=== PATIENT | female | born 1970 | race Caucasian/White ===

== ENCOUNTER 2017-09-10 10:52 | Emergency (ER) | payer OTHER ==
[2017-09-10] MEDS ORDERED: Sodium Chloride 0.9% 1,000 ML IV ONE (11:12)
[2017-09-10 11:44] LABS: CHLORIDE,CL 104 mmol/L (101-111); SODIUM,NA 138 mmol/L (135-145)
--- NOTE | 2017-09-10 11:45 | EDM.PDOC ---
ED HPI GENERAL MEDICAL PROBLEM - General Chief Complaint: Cardiovascular Problem Stated Complaint: DIZZY Time Seen by Provider: 09/10/17 11:30 Source of Information: Reports: Patient History Limitations: Reports: No Limitations - History of Present Illness INITIAL COMMENTS - FREE TEXT/NARRATIVE: This 47 yo female patient reports to the ED with increased dizziness. The patient reports her symptoms started on (09/07/17) and have been getting worse. The patient also reports a 1 month history of nasal congestion. The patient reports no tenderness to palpation of the sinuses. The patient reports no changes to her activity level, no changes to her diet, no changes to her level of fluid consumption and no recent traumatic events. The patient reports she has had a total hysterectomy. The patient has continued to take her sleeping medications with no changes to the dosing. Onset Date: 09/07/17 Duration: Constant, Getting Worse Location: Reports: Generalized Quality: Reports: Other (dizziness) Severity: Moderate Improves with: Reports: Rest Worsens with: Reports: Movement - Related Data Allergies Allergy/AdvReac Type Severity Reaction Status Date / Time levofloxacin Allergy Vomiting Verified 09/10/17 11:01 prochlorperazine Allergy Rash Verified 09/10/17 11:01 [From Compazine] comapazine Allergy Rash Uncoded 09/10/17 11:01 Home Meds: Home Meds Zolpidem [Ambien] 5 mg PO BEDTIME 05/05/14 [History] FLUoxetine [PROzac] 20 mg PO DAILY 10/20/16 [History] Past Medical History HEENT History: Reports: None, Impaired Vision Gastrointestinal History: Reports: Gastritis Other Gastrointestinal History: small intestine tumor Genitourinary History: Reports: None 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 - Infectious Disease History Infectious Disease History: Reports: Measles - Past Surgical History GI Surgical History: Reports: Cholecystectomy Female Surgical History: Reports: Section, Hysterectomy Social & Family History - Family History Family Medical History: Noncontributory - Tobacco Use Smoking Status *Q: Never Smoker Second Hand Smoke Exposure: Yes - Caffeine Use Caffeine Use: Reports: Coffee - Recreational Drug Use Recreational Drug Use: No - Living Situation & Occupation Living situation: Reports: with Family Occupation: Employed ED ROS GENERAL - Review of Systems Review Of Systems: ROS reveals no pertinent complaints other than HPI. ED EXAM, GENERAL - Physical Exam Exam: See Below Exam Limited By: No Limitations General Appearance: Alert, WD/WN, Mild Distress Eye Exam: Bilateral Eye: EOMI, Normal Inspection, PERRL Ears: Normal External Exam, Normal Canal, Hearing Grossly Normal, Normal TMs Nose: Normal Inspection, Normal Mucosa, No Blood Throat/Mouth: Normal Inspection, Normal Lips, Normal Teeth, Normal Gums, Normal Oropharynx, Normal Voice, No Airway Compromise Head: Atraumatic, Normocephalic Neck: Normal Inspection, Supple, Non-Tender, Full Range of Motion Respiratory/Chest: No Respiratory Distress, Lungs Clear, Normal Breath Sounds, No Accessory Muscle Use, Chest Non-Tender Cardiovascular: Normal Peripheral Pulses, Regular Rate, Rhythm, No Edema, No Gallop, No JVD, No Murmur, No Rub GI/Abdominal: Normal Bowel Sounds, Soft, Non-Tender, No Organomegaly, No Distention, No Abnormal Bruit, No Mass (Female) Exam: Deferred Rectal (Female) Exam: Deferred Back Exam: Normal Inspection, Full Range of Motion, NT Extremities: Normal Inspection, Normal Range of Motion, Non-Tender, Normal Capillary Refill, No Pedal Edema Neurological: Alert, Oriented, CN II-XII Intact, Normal Cognition, Normal Gait, Normal Reflexes, No Motor/Sensory Deficits Psychiatric: Normal Affect, Normal Mood Skin Exam: Warm, Dry, Intact, Normal Color, No Rash Lymphatic: No Adenopathy Course - Vital Signs Last Recorded V/S: Last Vital Signs Temp 36.0 C 09/10/17 10:57 Pulse 89 09/10/17 10:57 Resp 16 09/10/17 10:57 BP 130/82 09/10/17 10:57 Pulse Ox 96 09/10/17 10:57 Orthostatic Blood Pressure [ 104/68 Standing] Orthostatic Blood Pressure [ 121/78 Sitting] Orthostatic Blood Pressure [ 120/82 Supine] - Orders/Labs/Meds Orders: Active Orders 24 hr Category Date Time Status EKG Documentation Completion [RC] URGENT Care 09/10/17 11:12 Active Labs: Laboratory Tests 09/10/17 09/10/17 Range/Units 11:19 11:19 WBC 6.2 (5.0-10.0) 10^3/uL RBC 4.93 (4.2-5.4) 10^6/uL Hgb 14.1 D (12.0-16.0) g/dL Hct 44.1 (37.0-47.0) % MCV 89.5 (80-100) fL MCH 28.6 (27.0-34.0) pg MCHC 32.0 L (33.0-35.0) g/dL Plt Count 223 (150-450) 10^3/uL Neut % (Auto) 68.4 (42.2-75.2) % Lymph % (Auto) 21.1 (20.5-50.1) % [place] % (Auto) 6.8 (2-8) % Eos % (Auto) 3.2 H (1.0-3.0) % Baso % (Auto) 0.5 (0.0-1.0) % Sodium 138 (135-145) mmol/L Potassium 3.8 (3.6-5.0) mmol/L Chloride 104 (101-111) mmol/L Carbon Dioxide 22.0 (21.0-31.0) mmol/L Anion Gap 15.8 BUN 13 (7-18) mg/dL Creatinine 0.9 (0.6-1.3) mg/dL Est Cr Clr Drug Dosing 66.73 mL/min Estimated GFR (MDRD) > 60 BUN/Creatinine Ratio 14.44 Glucose 168 H (74-105) mg/dL Calcium 9.5 (8.4-10.2) mg/dl Total Bilirubin 0.3 (0.2-1.0) mg/dL AST 44 H (10-42) IU/L ALT 40 (10-60) IU/L Alkaline Phosphatase 113 (42-121) IU/L Troponin I < 0.02 (0.00-0.02) ng/ml Total Protein 7.1 (6.7-8.2) g/dl Albumin 4.1 (3.2-5.5) g/dl Globulin 3.0 Albumin/Globulin Ratio 1.37 Meds: Medications Discontinued Medications Generic Name Dose Route Start Last Admin Trade Name Freq PRN Reason Stop Dose Admin Sodium Chloride 1,000 mls @ 999 mls/hr 09/10/17 11:12 09/10/17 11:21 Normal Saline IV 09/10/17 12:12 999 mls/hr .BOLUS ONE Administration Meclizine HCl 25 mg 09/10/17 11:54 09/10/17 11:57 Antivert PO 09/10/17 11:55 25 mg ONETIME ONE Administration Departure - Departure Time of Disposition: 12:25 Disposition: Home, Self-Care 01 Condition: Fair Clinical Impression: Vertigo Instructions: Vertigo, [id number] Forms: ED Department Discharge Care Plan Goals: The patient was advised of the examination, lab and EKG results during the visit. The patient was given a liter of IV fluid and an oral dose of Meclizine while in the ED. The patient was discharged with a script for Meclizine (25 mg) #10 to take 1 by mouth 3 times per day as needed for dizziness. If the patient has any additional symptoms or concerns, the patient should follow-up with her primary care facility or return to the emergency department. - My Orders Last 24 Hours: My Active Orders 09/10/17 11:12 EKG Documentation Completion [RC] URGENT - Assessment/Plan Last 24 Hours: My Active Orders 09/10/17 11:12 EKG Documentation Completion [RC] URGENT
[2017-09-10] MEDS ORDERED: Meclizine 12.5 MG Tab PO ONE (11:54)
[2017-09-10 12:30] VITALS: BP 113/72
--- NOTE | 2017-09-13 10:21 | EKG ---
09/10/2017- CORTES RUCKER - EKG, per my reading, shows sinus rhythm at a rate of 77, with no acute ST changes. [facility] /[id number]
== END 2017-09-10 12:33 | disposition home or self-care (01) ==
LOC: DL.ED 10:52
DX: R42 Dizziness and giddiness (principal); Z88.1 Allergy status to other antibiotic agents; Z88.8 Allergy status to other drugs, medicaments and biological substances; Z79.899 Other long term (current) drug therapy
CPT/HCPCS: 36415; 80053; 84484; 85025; 93005; 96360; 99284; A9270; J7030

== ENCOUNTER 2017-10-08 19:37 | Emergency (ER) | payer OTHER ==
[2017-10-08] MEDS ORDERED: Sodium Chloride 0.9% 1,000 ML IV ONE ×2 (20:01→22:08)
--- NOTE | 2017-10-08 20:07 | EDM.PDOCBH ---
ED HPI GENERAL MEDICAL PROBLEM - General Chief Complaint: Behavioral/Psych Stated Complaint: took lot of pills fluoxetine Time Seen by Provider: 10/08/17 20:02 Source of Information: Reports: Patient, Family History Limitations: Reports: No Limitations - History of Present Illness INITIAL COMMENTS - FREE TEXT/NARRATIVE: pt states wants to kill herself and doesn't remember when she took all those pills. spouse states pt was fine this am but was sleeping/napping a lot, then he left to help cousin and returned @ 6pm and noticed pt was staggering about 7pm. then he brought her here. pt took approx. 13 x ambien 5mg + 26 x prozac 40mg + 37 meclizine 25mg at unknown time. - Related Data Allergies Allergy/AdvReac Type Severity Reaction Status Date / Time levofloxacin Allergy Vomiting Verified 10/08/17 19:46 prochlorperazine Allergy Rash Verified 10/08/17 19:46 [From Compazine] comapazine Allergy Rash Uncoded 10/08/17 19:46 Home Meds: Home Meds Zolpidem [Ambien] 5 mg PO BEDTIME 05/05/14 [History] FLUoxetine [PROzac] 20 mg PO DAILY 10/20/16 [History] Meclizine HCl [Dramamine Less Drowsy] 25 mg PO DAILY PRN 10/08/17 [History] Past Medical History HEENT History: Reports: None, Impaired Vision Gastrointestinal History: Reports: Gastritis Other Gastrointestinal History: small intestine tumor Genitourinary History: Reports: None 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 - Infectious Disease History Infectious Disease History: Reports: Measles - Past Surgical History GI Surgical History: Reports: Cholecystectomy Female Surgical History: Reports: Section, Hysterectomy Social & Family History - Family History Family Medical History: Noncontributory - Tobacco Use Smoking Status *Q: Never Smoker Second Hand Smoke Exposure: No - Caffeine Use Caffeine Use: Reports: Coffee - Recreational Drug Use Recreational Drug Use: No - Living Situation & Occupation Living situation: Reports: with Family Occupation: Employed ED ROS GENERAL - Review of Systems Review Of Systems: ROS reveals no pertinent complaints other than HPI. ED EXAM, BEHAVIORAL HEALTH - Physical Exam Exam: See Below Exam Limited By: No Limitations General Appearance: Alert, WD/WN, Mild Distress, Other (upset co-op, not wanting to talk) Eye Exam: Bilateral Eye: PERRL (pupils ER @ 4mm) Ears: Hearing Grossly Normal Throat/Mouth: Normal Voice, No Airway Compromise Head: Atraumatic Neck: Non-Tender, Full Range of Motion Respiratory/Chest: No Respiratory Distress Cardiovascular: Regular Rate, Rhythm GI/Abdominal: Soft, Non-Tender Neurological: Alert, Normal Cognition, Normal Gait, No Motor/Sensory Deficits, Oriented x 3 Psychiatric: Alert, Non-Communicative, Suicidal Thoughts Skin Exam: Warm, Dry, Normal color COURSE, BEHAVIORAL HEALTH COMP - Course Vital Signs: Last Vital Signs Temp 35.5 C 10/08/17 19:42 Pulse 77 10/08/17 20:31 Resp 16 10/08/17 20:31 BP 121/77 10/08/17 20:31 Pulse Ox 95 10/08/17 20:31 Orders, Labs, Meds: Active Orders 24 hr Category Date Time Status EKG 12 Lead [EKG Documentation Completion] [RC] STAT Care 10/08/17 20:01 Active EKG 12 Lead [EKG Documentation Completion] [RC] STAT Care 10/08/17 21:35 Active Sodium Chloride 0.9% [Normal Saline] 1,000 ml Med 10/08/17 22:08 Active IV .BOLUS Medication Orders Sodium Chloride (Normal Saline) 1,000 mls @ 999 mls/hr IV .BOLUS ONE Stop: 10/08/17 23:08 Last Admin: 10/08/17 22:13 Dose: 999 mls/hr Laboratory Tests 10/08/17 10/08/17 10/08/17 Range/Units 20:14 20:14 21:47 WBC 10.0 (5.0-10.0) 10^3/uL RBC 5.36 (4.2-5.4) 10^6/uL Hgb 15.3 (12.0-16.0) g/dL Hct 46.4 (37.0-47.0) % MCV 86.6 (80-100) fL MCH 28.5 (27.0-34.0) pg MCHC 33.0 (33.0-35.0) g/dL Plt Count 242 (150-450) 10^3/uL Neut % (Auto) 86.3 H (42.2-75.2) % Lymph % (Auto) 7.7 L (20.5-50.1) % [place] % (Auto) 5.2 (2-8) % Eos % (Auto) 0.4 L (1.0-3.0) % Baso % (Auto) 0.4 (0.0-1.0) % Sodium 139 (135-145) mmol/L Potassium 3.6 (3.6-5.0) mmol/L Chloride 104 (101-111) mmol/L Carbon Dioxide 23.0 (21.0-31.0) mmol/L Anion Gap 15.6 BUN 21 H (7-18) mg/dL Creatinine 1.1 (0.6-1.3) mg/dL Est Cr Clr Drug Dosing 54.60 mL/min Estimated GFR (MDRD) 53 BUN/Creatinine Ratio 19.09 Glucose 110 H (74-105) mg/dL Calcium 9.8 (8.4-10.2) mg/dl Total Bilirubin 0.4 (0.2-1.0) mg/dL AST 44 H (10-42) IU/L ALT 48 (10-60) IU/L Alkaline Phosphatase 121 (42-121) IU/L Troponin I < 0.02 (0.00-0.02) ng/ml Total Protein 8.2 (6.7-8.2) g/dl Albumin 4.7 (3.2-5.5) g/dl Globulin 3.5 Albumin/Globulin Ratio 1.34 Salicylates < 4 Urine Opiates Screen Negative (NEGATIVE) Ur Oxycodone Screen Negative (NEGATIVE) Urine Methadone Screen Negative (NEGATIVE) Acetaminophen < 10 Ur Barbiturates Screen Negative (NEGATIVE) U Tricyclic Antidepress Negative (NEGATIVE) Ur Phencyclidine Scrn Negative (NEGATIVE) Ur Amphetamine Screen Negative (NEGATIVE) U Methamphetamines Scrn Negative (NEGATIVE) Urine MDMA Screen Negative (NEGATIVE) U Benzodiazepines Scrn Positive H (NEGATIVE) Urine Cocaine Screen Negative (NEGATIVE) U Marijuana (THC) Screen Negative (NEGATIVE) Ethyl Alcohol < 5 mg/dL Medications Generic Name Dose Route Start Last Admin Trade Name Freq PRN Reason Stop Dose Admin Sodium Chloride 1,000 mls @ 999 mls/hr 10/08/17 22:08 10/08/17 22:13 Normal Saline IV 10/08/17 23:08 999 mls/hr .BOLUS ONE Administration Discontinued Medications Generic Name Dose Route Start Last Admin Trade Name Marielle PRN Reason Stop Dose Admin Sodium Chloride 1,000 mls @ 999 mls/hr 10/08/17 20:01 10/08/17 20:16 Normal Saline IV 10/08/17 21:01 999 mls/hr .BOLUS ONE Administration Re-Assessment/Re-Exam: case discussed with Nikki @ [facility] who recommended [facility]. repeat EKG show prolong QTc, case discussed with Dr Marx @ who kindly accepted pt. Departure - Departure Time of Disposition: 22:59 Disposition: DC/Tfer to Acute Hospital 02 Condition: Good Clinical Impression: Suicidal behavior with attempted self-injury - Discharge Information Forms: Interfacility Transfer EMTALA - My Orders Last 24 Hours: My Active Orders 10/08/17 20:01 EKG 12 Lead [EKG Documentation Completion] [RC] STAT 10/08/17 21:35 EKG 12 Lead [EKG Documentation Completion] [RC] STAT 10/08/17 22:08 Sodium Chloride 0.9% [Normal Saline] 1,000 ml IV .BOLUS - Assessment/Plan Last 24 Hours: My Active Orders 10/08/17 20:01 EKG 12 Lead [EKG Documentation Completion] [RC] STAT 10/08/17 21:35 EKG 12 Lead [EKG Documentation Completion] [RC] STAT 10/08/17 22:08 Sodium Chloride 0.9% [Normal Saline] 1,000 ml IV .BOLUS
[2017-10-08 20:31] VITALS: BP 121/77
[2017-10-08 20:46] LABS: CHLORIDE,CL 104 mmol/L (101-111); SODIUM,NA 139 mmol/L (135-145)
[2017-10-08 20:50] LABS: ACETAMINOPHEN < 10
--- NOTE | 2017-10-11 10:44 | EKG ---
10/08/2017 - CORTES RUCKER - FINDINGS: First EKG dated at 10/08/2017 at 1958 hours. I reviewed the EKG and agree with the machine's reading. Second EKG dated at 10/08/2017 at 2212 hours. I reviewed the EKG and agree with the machine's reading. [facility] /[id number]
== END 2017-10-08 23:25 ==
LOC: DL.ED 19:37
DX: T43.222A Poisoning by selective serotonin reuptake inhibitors, intentional self-harm, initial encounter (principal); T45.0X2A Poisoning by antiallergic and antiemetic drugs, intentional self-harm, initial encounter; Z88.1 Allergy status to other antibiotic agents; Z88.8 Allergy status to other drugs, medicaments and biological substances; Z79.899 Other long term (current) drug therapy
CPT/HCPCS: 36415; 80053; 80305; 84484; 85025; 93005; 96360; 96361; 99285; G0480; J7030

== ENCOUNTER 2017-12-09 17:41 | Emergency (ER) | payer OTHER ==
[2017-12-09] MEDS ORDERED: Acetaminophen/HYDROcodone 325-10 MG Tab PO ONE (17:42)
--- NOTE | 2017-12-09 18:04 | EDM.PDOC ---
ED HPI GENERAL MEDICAL PROBLEM - General Chief Complaint: General Stated Complaint: JOINT PAIN,REACTION TO PILL [id number] Time Seen by Provider: 12/09/17 17:57 Source of Information: Reports: Patient History Limitations: Reports: No Limitations - History of Present Illness INITIAL COMMENTS - FREE TEXT/NARRATIVE: Patient complains of all over body pain secondary to taking Crestor. She's had symptoms for about a week. No better with coenzyme Q. She describes joints feeling stiff however she does not have any edema or obvious swelling. She denies fever chills night sweats. No complaints of abdominal symptoms. No history of rheumatoid disease. Duration: Day(s): Generalized Pain Score (Numeric/FACES): 10 - Related Data Allergies Allergy/AdvReac Type Severity Reaction Status Date / Time levofloxacin Allergy Vomiting Verified 10/08/17 19:46 prochlorperazine Allergy Rash Verified 10/08/17 19:46 [From Compazine] comapazine Allergy Rash Uncoded 10/08/17 19:46 Home Meds: Home Meds ARIPiprazole [Abilify] 2 mg PO BEDTIME 12/09/17 [History] ClonazePAM [KlonoPIN] 0.5 mg PO BEDTIME 12/09/17 [History] Escitalopram [Lexapro] 20 mg PO BEDTIME 12/09/17 [History] Rosuvastatin [Crestor] 10 mg PO BEDTIME 12/09/17 [History] Ubidecarenone [Co Q-10] 100 mg PO BEDTIME 12/09/17 [History] Past Medical History HEENT History: Reports: None, Impaired Vision Cardiovascular History: Reports: High Cholesterol Gastrointestinal History: Reports: Gastritis Other Gastrointestinal History: small intestine tumor Genitourinary History: Reports: None 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 - Infectious Disease History Infectious Disease History: Reports: Measles - Past Surgical History GI Surgical History: Reports: Cholecystectomy Female Surgical History: Reports: Section, Hysterectomy Social & Family History - Family History Family Medical History: Noncontributory - Tobacco Use Smoking Status *Q: Never Smoker Second Hand Smoke Exposure: No - Caffeine Use Caffeine Use: Reports: Coffee - Recreational Drug Use Recreational Drug Use: No - Living Situation & Occupation Living situation: Reports: with Family Occupation: Employed ED ROS GENERAL - Review of Systems Review Of Systems: See Below Constitutional: Reports: Malaise HEENT: Reports: No Symptoms Respiratory: Reports: No Symptoms Cardiovascular: Reports: No Symptoms Endocrine: Reports: No Symptoms GI/Abdominal: Reports: No Symptoms : Reports: No Symptoms Musculoskeletal: Reports: Joint Pain, Muscle Pain Skin: Reports: No Symptoms Neurological: Reports: No Symptoms Psychiatric: Reports: No Symptoms ED EXAM, GENERAL - Physical Exam Exam: See Below Exam Limited By: No Limitations General Appearance: Alert, No Apparent Distress Head: Atraumatic, Normocephalic Neck: Normal Inspection Respiratory/Chest: Lungs Clear Cardiovascular: Normal Peripheral Pulses Extremities: Normal Range of Motion, No Pedal Edema, Normal Capillary Refill. No: Pallor, Redness Neurological: Alert, Oriented, CN II-XII Intact Course - Vital Signs Last Recorded V/S: Last Vital Signs Temp 97 F 12/09/17 18:12 Pulse 81 12/09/17 18:12 Resp 16 12/09/17 18:12 BP 118/69 12/09/17 18:12 Pulse Ox 99 12/09/17 18:12 - Orders/Labs/Meds Orders: Active Orders 24 hr Category Date Time Status CBC WITH AUTO DIFF [HEME] Stat Lab 12/09/17 18:12 Results SEDIMENTATION RATE MANUAL [HEME] Stat Lab 12/09/17 18:12 Results Ketorolac [Toradol] Med 12/09/17 18:47 Once 30 mg IM ONETIME ONE Labs: Laboratory Tests 12/09/17 12/09/17 Range/Units 18:12 18:12 WBC 6.5 (5.0-10.0) 10^3/uL RBC 4.33 (4.2-5.4) 10^6/uL Hgb 12.4 D (12.0-16.0) g/dL Hct 38.7 (37.0-47.0) % MCV 89.4 (80-100) fL MCH 28.6 (27.0-34.0) pg MCHC 32.0 L (33.0-35.0) g/dL Plt Count 205 (150-450) 10^3/uL Neut % (Auto) 58.7 (42.2-75.2) % Lymph % (Auto) 28.9 (20.5-50.1) % [place] % (Auto) 8.9 H (2-8) % Eos % (Auto) 2.9 (1.0-3.0) % Baso % (Auto) 0.6 (0.0-1.0) % Creatine Kinase 153 (26-174) IU/L - Re-Assessments/Exams Free Text/Narrative Re-Assessment/Exam: Labs are reviewed. Patient tolerated Toradol. Patient advised to discontinue taking Crestor Departure - Departure Time of Disposition: 18:51 Disposition: Home, Self-Care 01 Condition: Good Clinical Impression: Adverse reaction to statin medication - Discharge Information Forms: ED Department Discharge Additional Instructions: Discontinue taking Crestor at this time. Follow-up with her regular provider on Monday. Call or return if any problems questions or concerns - My Orders Last 24 Hours: My Active Orders 12/09/17 18:12 CBC WITH AUTO DIFF [HEME] Stat SEDIMENTATION RATE MANUAL [HEME] Stat 12/09/17 18:47 Ketorolac [Toradol] 30 mg IM ONETIME ONE - Assessment/Plan Last 24 Hours: My Active Orders 12/09/17 18:12 CBC WITH AUTO DIFF [HEME] Stat SEDIMENTATION RATE MANUAL [HEME] Stat 12/09/17 18:47 Ketorolac [Toradol] 30 mg IM ONETIME ONE
[2017-12-09 18:15] VITALS: BP 118/69
[2017-12-09] MEDS ORDERED: Ketorolac 30 MG/ML SDV IM ONE (18:47)
[2017-12-09 19:28] LABS: CHLORIDE,CL 105 mmol/L (101-111); SODIUM,NA 139 mmol/L (135-145)
[2017-12-09] MEDS ORDERED: Acetaminophen/HYDROcodone 325-10 MG Tab ONE (20:21)
== END 2017-12-09 20:30 | disposition home or self-care (01) ==
LOC: DL.ED 17:41
DX: M25.50 Pain in unspecified joint (principal); T46.6X5A Adverse effect of antihyperlipidemic and antiarteriosclerotic drugs, initial encounter; E78.00 Pure hypercholesterolemia, unspecified; F32.9 Major depressive disorder, single episode, unspecified; Z88.1 Allergy status to other antibiotic agents; Z88.8 Allergy status to other drugs, medicaments and biological substances
CPT/HCPCS: 36415; 80053; 82550; 85025; 85651; 86140; 96372; 99283; J1885; A9270-GY

== ENCOUNTER 2018-02-10 18:02 | Emergency (ER) | payer OTHER ==
[2018-02-10] MEDS ORDERED: Ketorolac 30 MG/ML SDV IM ONE (19:21)
--- NOTE | 2018-02-10 19:26 | EDM.PDOC ---
ED HPI GENERAL MEDICAL PROBLEM - General Chief Complaint: Lower Extremity Injury/Pain Stated Complaint: [id number] reaction to Cholesterol pills Time Seen by Provider: 02/10/18 19:24 Source of Information: Reports: Patient History Limitations: Reports: No Limitations - History of Present Illness INITIAL COMMENTS - FREE TEXT/NARRATIVE: c/o few months h/o aching pain in both legs since starting on crestor. saw PMD but was told to continue Rx but now feeling worse and hard to walk about. Bilateral Knee Pain Score (Numeric/FACES): 9 - Related Data Allergies Allergy/AdvReac Type Severity Reaction Status Date / Time levofloxacin Allergy Vomiting Verified 02/10/18 18:34 prochlorperazine Allergy Rash Verified 02/10/18 18:34 [From Compazine] comapazine Allergy Rash Uncoded 02/10/18 18:34 Home Meds: Home Meds ARIPiprazole [Abilify] 2 mg PO BEDTIME 12/09/17 [History] ClonazePAM [KlonoPIN] 0.5 mg PO BID 12/09/17 [History] Escitalopram [Lexapro] 20 mg PO BEDTIME 12/09/17 [History] Rosuvastatin [Crestor] 5 mg PO BEDTIME 12/09/17 [History] Ubidecarenone [Co Q-10] 100 mg PO BEDTIME 12/09/17 [History] Past Medical History HEENT History: Reports: None, Impaired Vision Cardiovascular History: Reports: High Cholesterol Gastrointestinal History: Reports: Gastritis Other Gastrointestinal History: small intestine tumor Genitourinary History: Reports: None 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 - Infectious Disease History Infectious Disease History: Reports: Measles - Past Surgical History GI Surgical History: Reports: Cholecystectomy, Small Bowel Female Surgical History: Reports: Section, Hysterectomy Social & Family History - Family History Family Medical History: Noncontributory - Tobacco Use Smoking Status *Q: Never Smoker Second Hand Smoke Exposure: No - Caffeine Use Caffeine Use: Reports: Coffee, Tea - Recreational Drug Use Recreational Drug Use: No - Living Situation & Occupation Living situation: Reports: with Family Occupation: Employed Review of Systems - Review of Systems Review Of Systems: ROS reveals no pertinent complaints other than HPI. ED EXAM, GENERAL - Physical Exam Exam: See Below Exam Limited By: No Limitations General Appearance: Alert, WD/WN, Anxious, Mild Distress, Other (upset) Ears: Hearing Grossly Normal Throat/Mouth: Normal Voice, No Airway Compromise Head: Atraumatic Neck: Non-Tender, Full Range of Motion Respiratory/Chest: No Respiratory Distress Cardiovascular: Regular Rate, Rhythm GI/Abdominal: Soft, Non-Tender Extremities: Leg Pain, Other (NV wnl, minimal tenderness on R/P. gait limited to pain.). No: Limited Range of Motion, Increased Warmth, Mottled, Pallor, Redness Neurological: Alert, Oriented, Normal Cognition, No Motor/Sensory Deficits Psychiatric: Anxious Skin Exam: Warm, Dry, Normal Color Lymphatic: No Adenopathy Course - Vital Signs Last Recorded V/S: Last Vital Signs Temp 36.4 C 02/10/18 18:19 Pulse 75 02/10/18 18:19 Resp 20 02/10/18 18:19 BP 114/71 02/10/18 18:19 Pulse Ox 98 02/10/18 18:19 - Orders/Labs/Meds Labs: Laboratory Tests 02/10/18 02/10/18 02/10/18 Range/Units 19:05 19:05 19:05 WBC 8.1 (5.0-10.0) 10^3/uL RBC 4.55 (4.2-5.4) 10^6/uL Hgb 13.0 (12.0-16.0) g/dL Hct 39.7 (37.0-47.0) % MCV 87.3 (80-100) fL MCH 28.6 (27.0-34.0) pg MCHC 32.7 L (33.0-35.0) g/dL Plt Count 239 (150-450) 10^3/uL Neut % (Auto) 57.9 (42.2-75.2) % Lymph % (Auto) 31.1 (20.5-50.1) % [place] % (Auto) 8.3 H (2-8) % Eos % (Auto) 2.2 (1.0-3.0) % Baso % (Auto) 0.5 (0.0-1.0) % D-Dimer, Quantitative 1870 H (0-400) ng/mL Sodium 138 (135-145) mmol/L Potassium 3.5 L (3.6-5.0) mmol/L Chloride 101 (101-111) mmol/L Carbon Dioxide 30.0 (21.0-31.0) mmol/L Anion Gap 10.5 BUN 13 (7-18) mg/dL Creatinine 0.8 (0.6-1.3) mg/dL Est Cr Clr Drug Dosing 75.07 mL/min Estimated GFR (MDRD) > 60 BUN/Creatinine Ratio 16.25 Glucose 107 H (74-105) mg/dL Calcium 9.3 (8.4-10.2) mg/dl Total Bilirubin 0.6 (0.2-1.0) mg/dL AST 29 (10-42) IU/L ALT 30 (10-60) IU/L Alkaline Phosphatase 124 H (42-121) IU/L Creatine Kinase 127 (26-174) IU/L Total Protein 7.1 (6.7-8.2) g/dl Albumin 4.1 (3.2-5.5) g/dl Globulin 3.0 Albumin/Globulin Ratio 1.37 Meds: Medications Discontinued Medications Generic Name Dose Route Start Last Admin Trade Name Freq PRN Reason Stop Dose Admin Ketorolac Tromethamine 30 mg 02/10/18 19:21 02/10/18 19:29 Toradol IM 02/10/18 19:22 30 mg ONETIME ONE Administration - Re-Assessments/Exams Free Text/Narrative Re-Assessment/Exam: 02/10/18 20:24 results discussed with pt who is feeling much better and wants to go home now. elevated d dimer discussed but pt denies CP/SOB and actuaaly feels very good right now and smiling. continue use of crestor was discussed and decision left to pt presently. Departure - Departure Time of Disposition: 20:26 Disposition: Home, Self-Care 01 Condition: Good Clinical Impression: Adverse reaction to statin medication, Muscle spasm of both lower legs - Discharge Information Instructions: Muscle Cramps and Spasms, [id number] Forms: ED Department Discharge Additional Instructions: 1) rest 2) try heat to sore areas 3) return if there is any change or concern
[2018-02-10 19:30] LABS: ANION GAP 10.5; CHLORIDE,CL 101 mmol/L (101-111); SODIUM,NA 138 mmol/L (135-145)
[2018-02-10 20:26] VITALS: BP 100/70
== END 2018-02-10 20:30 | disposition home or self-care (01) ==
LOC: DL.ED 18:02
DX: M62.838 Other muscle spasm (principal); T46.6X5A Adverse effect of antihyperlipidemic and antiarteriosclerotic drugs, initial encounter; E78.00 Pure hypercholesterolemia, unspecified; Z88.1 Allergy status to other antibiotic agents; Z88.8 Allergy status to other drugs, medicaments and biological substances; Z79.899 Other long term (current) drug therapy; Z90.49 Acquired absence of other specified parts of digestive tract
CPT/HCPCS: 36415; 80053; 82550; 85025; 85379; 96372; 99283; J1885

== ENCOUNTER 2018-06-17 14:40 | Emergency (ER) | payer OTHER ==
[2018-06-17 15:23] VITALS: BP 107/74
[2018-06-17] MEDS ORDERED: LORazepam 0.5 MG Tab PO ONE (16:04)
[2018-06-17] MEDS ORDERED: LORazepam 0.5 MG Tab ONE (16:59)
--- NOTE | 2018-06-17 17:01 | EDM.PDOCBH ---
Scribed by Cassandra Camarillo 06/17/18 1700 for Ashutosh Rivera PA ED HPI GENERAL MEDICAL PROBLEM - General Chief Complaint: Behavioral/Psych Stated Complaint: PANIC/ANXIETY ATTACH Time Seen by Provider: 06/17/18 16:00 Source of Information: Reports: Patient, RN, RN Notes Reviewed History Limitations: Reports: No Limitations - History of Present Illness INITIAL COMMENTS - FREE TEXT/NARRATIVE: Patient is a 47-year-old female who is having an anxiety attack. She is having the anxiety attack because 2 weeks ago her dog got attacked, daughter moved out 1-1/2 weeks ago and work problems. She has taken all of her medications today. Onset: Gradual Duration: Getting Worse Severity: Moderate Improves with: Reports: None Worsens with: Reports: None Associated Symptoms: Reports: No Other Symptoms - Related Data Allergies Allergy/AdvReac Type Severity Reaction Status Date / Time levofloxacin Allergy Vomiting Verified 02/10/18 18:34 prochlorperazine Allergy Rash Verified 02/10/18 18:34 [From Compazine] comapazine Allergy Rash Uncoded 02/10/18 18:34 Home Meds: Home Meds ARIPiprazole [Abilify] 2 mg PO BEDTIME 12/09/17 [History] ClonazePAM [KlonoPIN] 0.5 mg PO BID 12/09/17 [History] Escitalopram [Lexapro] 20 mg PO BEDTIME 12/09/17 [History] Rosuvastatin [Crestor] 5 mg PO BEDTIME 12/09/17 [History] Ubidecarenone [Co Q-10] 100 mg PO BEDTIME 12/09/17 [History] Zolpidem Tartrate [Ambien] 10 mg PO BEDTIME 05/25/18 [History] hydroCHLOROthiazide [Hydrochlorothiazide] 12.5 mg PO DAILY 06/17/18 [History] Past Medical History HEENT History: Reports: None, Impaired Vision Cardiovascular History: Reports: High Cholesterol Gastrointestinal History: Reports: Gastritis Other Gastrointestinal History: small intestine tumor Genitourinary History: Reports: None 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 - Infectious Disease History Infectious Disease History: Reports: Measles - Past Surgical History GI Surgical History: Reports: Cholecystectomy, Small Bowel Female Surgical History: Reports: Section, Hysterectomy Social & Family History - Family History Family Medical History: Noncontributory - Caffeine Use Caffeine Use: Reports: Soda - Living Situation & Occupation Living situation: Reports: with Family Occupation: Employed ED ROS GENERAL - Review of Systems Review Of Systems: ROS reveals no pertinent complaints other than HPI. ED EXAM, BEHAVIORAL HEALTH - Physical Exam Exam: See Below Exam Limited By: No Limitations General Appearance: Alert, WD/WN, No Apparent Distress Eye Exam: Bilateral Eye: EOMI, Normal Inspection, PERRL Ears: Normal External Exam, Normal Canal, Hearing Grossly Normal, Normal TMs Nose: Normal Inspection, Normal Mucosa, No Blood Throat/Mouth: Normal Inspection, Normal Lips, Normal Teeth, Normal Gums, Normal Oropharynx, Normal Voice, No Airway Compromise Head: Atraumatic, Normocephalic Neck: Normal Inspection, Supple, Non-Tender, Full Range of Motion Respiratory/Chest: No Respiratory Distress, Lungs Clear, Normal Breath Sounds, No Accessory Muscle Use, Chest Non-Tender Cardiovascular: Normal Peripheral Pulses, Regular Rate, Rhythm, No Edema, No Gallop, No JVD, No Murmur, No Rub GI/Abdominal: Normal Bowel Sounds, Soft, Non-Tender, No Organomegaly, No Distention, No Abnormal Bruit, No Mass Rectal (Female) Exam: Deferred Back Exam: Normal Inspection, Full Range of Motion, NT Extremities: Normal Inspection, Normal Range of Motion, Non-Tender, Normal Capillary Refill, No Pedal Edema Neurological: Alert, Normal Mood/Affect, CN II-XII Intact, Normal Cognition, Normal Gait, Normal Reflexes, No Motor/Sensory Deficits, Oriented x 3 Psychiatric: Alert, Normal Affect, Normal Cognition, Normal Mood, Oriented Skin Exam: Warm, Dry, Intact COURSE, BEHAVIORAL HEALTH COMP - Course Vital Signs: Last Vital Signs Temp 36.1 C 06/17/18 15:21 Pulse 78 06/17/18 15:21 Resp 16 06/17/18 15:21 BP 107/74 06/17/18 15:21 Pulse Ox 98 06/17/18 15:21 Orders, Labs, Meds: Medications Discontinued Medications Generic Name Dose Route Start Last Admin Trade Name Marielle PRN Reason Stop Dose Admin Lorazepam 0.5 mg 06/17/18 16:04 06/17/18 16:08 Ativan PO 06/17/18 16:05 0.5 mg ONETIME ONE Administration Departure - Departure Time of Disposition: 16:53 Disposition: Home, Self-Care 01 Condition: Fair Clinical Impression: Panic attack - Discharge Information *PRESCRIPTION DRUG MONITORING PROGRAM REVIEWED*: Not Applicable *COPY OF PRESCRIPTION DRUG MONITORING REPORT IN PATIENT CLARK: Not Applicable Instructions: Panic Attack, [id number] Forms: ED Department Discharge Care Plan Goals: The patient was advised of the examination results during the visit. The patient was given an oral dose of Ativan while in the ED. The patient was discharged with Ativan (0.5 mg) #2 to take 1 by mouth every 8 hours as needed and a script for Ativan (0.5 mg) #6 to take 1 by mouth every 8 hours as needed for acute anxiety. The patient was encouraged to follow-up with her primary care and her counselor for continued evaluation and further treatment. If the patient has any additional symptoms or concerns, the patient should visit her primary care facility or return to the emergency department. I have read and agree with the documentation that has been completed regarding this visit. By signing this record, I attest that the documentation was completed in my physical presence and is an accurate record of the encounter.
== END 2018-06-17 17:07 | disposition home or self-care (01) ==
LOC: DL.ED 14:40
DX: F41.0 Panic disorder [episodic paroxysmal anxiety] (principal); Z79.899 Other long term (current) drug therapy
CPT/HCPCS: 99283; A9270

== ENCOUNTER 2018-11-14 18:41 | Emergency (ER) | payer OTHER ==
[2018-11-14 18:59] VITALS: BP 102/69
[2018-11-14] MEDS ORDERED: Sodium Chloride 0.9% 10 ML Syringe FLUSH PRN (19:04)
--- NOTE | 2018-11-14 19:15 | EDM.PDOC ---
ED HPI GENERAL MEDICAL PROBLEM - General Chief Complaint: General Stated Complaint: NOT FEELING GOOD Time Seen by Provider: 11/14/18 19:14 Source of Information: Reports: Patient, RN, RN Notes Reviewed History Limitations: Reports: No Limitations - History of Present Illness INITIAL COMMENTS - FREE TEXT/NARRATIVE: Pt to ER with c/o urgency, frequently burning with urination for about 2 weeks. She states she had the flu about 2 weeks ago, and has not felt much better since then. States she has a bad taste in her mouth "like cardboard". She states dizziness and feels as though she's going to pass out. States wt loss. Bad taste in mouth began about 1 week ago. Admits to chills, nausea, sore throat. Denies fever, CP, SOB, diarrhea, or blood in urine. Onset: Gradual - Related Data Allergies Allergy/AdvReac Type Severity Reaction Status Date / Time levofloxacin Allergy Vomiting Verified 11/14/18 18:59 prochlorperazine Allergy Rash Verified 11/14/18 18:59 [From Compazine] comapazine Allergy Rash Uncoded 11/14/18 18:59 Home Meds: Home Meds ARIPiprazole [Abilify] 2 mg PO BEDTIME 12/09/17 [History] ClonazePAM [KlonoPIN] 0.5 mg PO BID 12/09/17 [History] Escitalopram [Lexapro] 20 mg PO BEDTIME 12/09/17 [History] Rosuvastatin [Crestor] 5 mg PO BEDTIME 12/09/17 [History] Ubidecarenone [Co Q-10] 100 mg PO BEDTIME 12/09/17 [History] Zolpidem Tartrate [Ambien] 10 mg PO BEDTIME 05/25/18 [History] hydroCHLOROthiazide [Hydrochlorothiazide] 12.5 mg PO DAILY 06/17/18 [History] Past Medical History HEENT History: Reports: None, Impaired Vision Cardiovascular History: Reports: High Cholesterol Gastrointestinal History: Reports: Gastritis Other Gastrointestinal History: small intestine tumor Genitourinary History: Reports: 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 - Infectious Disease History Infectious Disease History: Reports: Measles - Past Surgical History GI Surgical History: Reports: Cholecystectomy, Small Bowel Female Surgical History: Reports: Section, Hysterectomy Social & Family History - Family History Family Medical History: Noncontributory - Tobacco Use Smoking Status *Q: Never Smoker Second Hand Smoke Exposure: No - Caffeine Use Caffeine Use: Reports: None - Recreational Drug Use Recreational Drug Use: No - Living Situation & Occupation Living situation: Reports: with Family Occupation: Employed ED ROS GENERAL - Review of Systems Review Of Systems: ROS reveals no pertinent complaints other than HPI. ED EXAM, GENERAL - Physical Exam Exam: See Below Exam Limited By: No Limitations General Appearance: Alert, WD/WN, No Apparent Distress Eye Exam: Bilateral Eye: EOMI, Normal Inspection Ears: Normal External Exam, Normal Canal, Hearing Grossly Normal, Normal TMs Nose: Normal Inspection Throat/Mouth: Normal Inspection, Normal Voice, No Airway Compromise Head: Atraumatic, Normocephalic Neck: Normal Inspection, Supple, Non-Tender, Full Range of Motion Respiratory/Chest: No Respiratory Distress, Lungs Clear, Normal Breath Sounds, No Accessory Muscle Use, Chest Non-Tender Cardiovascular: Normal Peripheral Pulses, Regular Rate, Rhythm, No Edema, No Gallop, No JVD, No Murmur, No Rub Peripheral Pulses: 2+: Radial (L), Radial (R) GI/Abdominal: Normal Bowel Sounds, Soft, Non-Tender, No Organomegaly, No Distention, No Abnormal Bruit, No Mass, Pelvis Stable (Female) Exam: Deferred Rectal (Female) Exam: Deferred Back Exam: Normal Inspection, Full Range of Motion, NT Extremities: Normal Inspection, Normal Range of Motion, Non-Tender, Normal Capillary Refill, No Pedal Edema Neurological: Alert, Oriented, CN II-XII Intact, Normal Cognition, Normal Gait, Normal Reflexes, No Motor/Sensory Deficits Psychiatric: Normal Mood, Flat Affect Skin Exam: Warm, Dry, Intact, Normal Color, No Rash Lymphatic: No Adenopathy Course - Vital Signs Last Recorded V/S: Last Vital Signs Temp 97.3 F 11/14/18 18:56 Pulse 107 H 11/14/18 18:56 Resp 18 11/14/18 18:56 BP 102/69 11/14/18 18:56 Pulse Ox 94 L 11/14/18 18:56 - Orders/Labs/Meds Orders: Active Orders 24 hr Category Date Time Status Peripheral IV Care [RC] . DIRECTED Care 11/14/18 19:04 Active CULTURE STREP A CONFIRMATION [] Stat Lab 11/14/18 20:04 Results CULTURE URINE [] Stat Lab 11/14/18 20:18 Received STREP SCRN A RAPID W CULT CONF [] Stat Lab 11/14/18 20:04 Results Peripheral IV Insertion Adult [OM.PC] Routine Oth 11/14/18 19:04 Ordered Labs: Laboratory Tests 11/14/18 11/14/18 11/14/18 Range/Units 19:12 19:12 19:12 WBC 7.4 (5.0-10.0) 10^3/uL RBC 4.62 (4.2-5.4) 10^6/uL Hgb 13.6 D (12.0-16.0) g/dL Hct 40.4 (37.0-47.0) % MCV 87.4 (80-100) fL MCH 29.4 (27.0-34.0) pg MCHC 33.7 (33.0-35.0) g/dL Plt Count 205 (150-450) 10^3/uL Neut % (Auto) 59.8 (42.2-75.2) % Lymph % (Auto) 28.0 (20.5-50.1) % [place] % (Auto) 8.4 H (2-8) % Eos % (Auto) 2.7 (1.0-3.0) % Baso % (Auto) 1.1 H (0.0-1.0) % Sodium 136 (135-145) mmol/L Potassium 4.0 (3.6-5.0) mmol/L Chloride 101 (101-111) mmol/L Carbon Dioxide 25.0 (21.0-31.0) mmol/L Anion Gap 14.0 BUN 11 (7-18) mg/dL Creatinine 0.6 (0.6-1.3) mg/dL Est Cr Clr Drug Dosing 99.02 mL/min Estimated GFR (MDRD) > 60 BUN/Creatinine Ratio 18.33 Glucose 104 (74-105) mg/dL Calcium 9.3 (8.4-10.2) mg/dl Total Bilirubin 0.5 (0.2-1.0) mg/dL AST 25 (10-42) IU/L ALT 23 (10-60) IU/L Alkaline Phosphatase 99 (42-121) IU/L Total Protein 7.2 (6.7-8.2) g/dl Albumin 3.9 (3.2-5.5) g/dl Globulin 3.3 Albumin/Globulin Ratio 1.18 Amylase 122 H (28-100) U/L Lipase 47 (22-51) U/L Urine Color (YELLOW) Urine Appearance (CLEAR) Urine pH (5.0-9.0) Ur Specific [place] (1.005-1.030) Urine Protein (NEGATIVE) Urine Glucose (UA) (NEGATIVE) Urine Ketones (NEGATIVE) Urine Occult Blood (NEGATIVE) Urine Nitrite (NEGATIVE) Urine Bilirubin (NEGATIVE) Urine Urobilinogen (0.2-1.0) mg/dL Ur Leukocyte Esterase (NEGATIVE) Urine RBC /HPF Urine WBC (0-5/HPF) /HPF Ur Epithelial Cells /HPF Urine Bacteria (0-FEW/HPF) /HPF Urine Mucus /LPF 11/14/18 Range/Units 20:18 WBC (5.0-10.0) 10^3/uL RBC (4.2-5.4) 10^6/uL Hgb (12.0-16.0) g/dL Hct (37.0-47.0) % MCV (80-100) fL MCH (27.0-34.0) pg MCHC (33.0-35.0) g/dL Plt Count (150-450) 10^3/uL Neut % (Auto) (42.2-75.2) % Lymph % (Auto) (20.5-50.1) % [place] % (Auto) (2-8) % Eos % (Auto) (1.0-3.0) % Baso % (Auto) (0.0-1.0) % Sodium (135-145) mmol/L Potassium (3.6-5.0) mmol/L Chloride (101-111) mmol/L Carbon Dioxide (21.0-31.0) mmol/L Anion Gap BUN (7-18) mg/dL Creatinine (0.6-1.3) mg/dL Est Cr Clr Drug Dosing mL/min Estimated GFR (MDRD) BUN/Creatinine Ratio Glucose (74-105) mg/dL Calcium (8.4-10.2) mg/dl Total Bilirubin (0.2-1.0) mg/dL AST (10-42) IU/L ALT (10-60) IU/L Alkaline Phosphatase (42-121) IU/L Total Protein (6.7-8.2) g/dl Albumin (3.2-5.5) g/dl Globulin Albumin/Globulin Ratio Amylase (28-100) U/L Lipase (22-51) U/L Urine Color Yellow (YELLOW) Urine Appearance Cloudy (CLEAR) Urine pH 7.0 (5.0-9.0) Ur Specific [place] 1.020 (1.005-1.030) Urine Protein Negative (NEGATIVE) Urine Glucose (UA) Negative (NEGATIVE) Urine Ketones Negative (NEGATIVE) Urine Occult Blood Negative (NEGATIVE) Urine Nitrite Negative (NEGATIVE) Urine Bilirubin Negative (NEGATIVE) Urine Urobilinogen 0.2 (0.2-1.0) mg/dL Ur Leukocyte Esterase Moderate H (NEGATIVE) Urine RBC 0-5 /HPF Urine WBC 50-75 H (0-5/HPF) /HPF Ur Epithelial Cells Moderate H /HPF Urine Bacteria Many H (0-FEW/HPF) /HPF Urine Mucus Moderate H /LPF Meds: Medications Discontinued Medications Generic Name Dose Route Start Last Admin Trade Name Freq PRN Reason Stop Dose Admin Lactated Ringer's 1,000 mls @ 999 mls/hr 11/14/18 19:28 11/14/18 19:38 Ringers, Lactated IV 11/14/18 20:28 999 mls/hr .BOLUS ONE Administration Nitrofurantoin Macrocrystals 100 mg 11/14/18 20:42 11/14/18 20:49 Macrobid PO 11/14/18 20:43 100 mg ONETIME ONE Administration Sodium Chloride 10 ml 11/14/18 19:04 11/14/18 19:14 Saline Flush FLUSH 10 ml ASDIRECTED PRN Administration Keep Vein Open Departure - Departure Time of Disposition: 20:58 Disposition: Home, Self-Care 01 Condition: Fair Clinical Impression: Vaginal yeast infection UTI (urinary tract infection) Qualifiers: Urinary tract infection type: acute cystitis Hematuria presence: without hematuria Qualified Code(s): N30.00 - Acute cystitis without hematuria GERD (gastroesophageal reflux disease) Qualifiers: Esophagitis presence: esophagitis presence not specified Qualified Code(s): K21.9 - Gastro-esophageal reflux disease without esophagitis - Discharge Information *PRESCRIPTION DRUG MONITORING PROGRAM REVIEWED*: No *COPY OF PRESCRIPTION DRUG MONITORING REPORT IN PATIENT CLARK: No Instructions: Indigestion, Qyay-[id number], Food Choices for Gastroesophageal Reflux Disease, Adult, [id number], Antibiotic Medicine, Adult, [id number], Heartburn, [id number], Vaginal Yeast Infection, Adult, Urinary Tract Infection , Adult, [id number], Gastroesophageal Reflux Disease, Adult, [id number] Referrals: Angela Edmonds NP [Primary Care Provider] - Forms: ED Department Discharge Additional Instructions: RX: Omeprazole, Diflucan, Macrobid Drink plenty of water Follow up with your primary care facility if no improvement - My Orders Last 24 Hours: My Active Orders 11/14/18 19:04 Peripheral IV Care [RC] . DIRECTED Peripheral IV Insertion Adult [OM.PC] Routine 11/14/18 20:04 CULTURE STREP A CONFIRMATION [RM] Stat STREP SCRN A RAPID W CULT CONF [RM] Stat 11/14/18 20:18 CULTURE URINE [RM] Stat - Assessment/Plan Last 24 Hours: My Active Orders 11/14/18 19:04 Peripheral IV Care [RC] . DIRECTED Peripheral IV Insertion Adult [OM.PC] Routine 11/14/18 20:04 CULTURE STREP A CONFIRMATION [RM] Stat STREP SCRN A RAPID W CULT CONF [RM] Stat 11/14/18 20:18 CULTURE URINE [RM] Stat
[2018-11-14] MEDS ORDERED: Lactated Ringers 1,000 ML IV ONE (19:28)
[2018-11-14 19:37] LABS: CHLORIDE,CL 101 mmol/L (101-111); SODIUM,NA 136 mmol/L (135-145)
[2018-11-14] MEDS ORDERED: Nitrofurantoin Monohydrate/Macrocrystalline 100 MG Cap PO ONE (20:42)
== END 2018-11-14 21:12 | disposition home or self-care (01) ==
LOC: DL.ED 18:41
DX: N30.00 Acute cystitis without hematuria (principal); K21.9 Gastro-esophageal reflux disease without esophagitis; B37.3 Candidiasis of vulva and vagina; Z88.8 Allergy status to other drugs, medicaments and biological substances; Z88.1 Allergy status to other antibiotic agents
CPT/HCPCS: 36415; 80053; 81001; 82150; 83690; 85025; 87081; 87086; 87430; 96360; 99284; A9270; J7120

== ENCOUNTER 2019-01-15 02:15 | Emergency (ER) | payer OTHER ==
[2019-01-15 02:21] VITALS: BP 107/62
--- NOTE | 2019-01-15 02:26 | EDM.PDOC ---
ED HPI GENERAL MEDICAL PROBLEM - General Chief Complaint: Genitourinary Problem Stated Complaint: UTI Time Seen by Provider: 01/15/19 02:26 Source of Information: Reports: Patient, RN, RN Notes Reviewed History Limitations: Reports: No Limitations - History of Present Illness INITIAL COMMENTS - FREE TEXT/NARRATIVE: Pt to ER with c/o frequency, urgency, and burning with urination. Patient states she has had some back pain as well. Pt believes the symptoms started about 2 weeks ago. Patient admits to fever and chills, denies N/V/D. Pt states she also has vaginal discharge that is white curdy substance. Onset: Gradual Duration: Constant, Getting Worse Location: Reports: Back Quality: Reports: Ache, Burning, Pressure Severity: Moderate Bilateral Flank Pain Score (Numeric/FACES): 10 - Related Data Allergies Allergy/AdvReac Type Severity Reaction Status Date / Time levofloxacin Allergy Vomiting Verified 01/15/19 02:24 prochlorperazine Allergy Rash Verified 01/15/19 02:24 [From Compazine] comapazine Allergy Rash Uncoded 01/15/19 02:24 Home Meds: Home Meds Escitalopram [Lexapro] 20 mg PO BEDTIME 12/09/17 [History] ALPRAZolam [Alprazolam Xr] 2 mg PO TID 01/15/19 [History] QUEtiapine [SEROquel] 50 mg PO BEDTIME 01/15/19 [History] Past Medical History HEENT History: Reports: Impaired Vision Cardiovascular History: Reports: High Cholesterol Gastrointestinal History: Reports: Gastritis Other Gastrointestinal History: small intestine tumor Genitourinary History: Reports: None, UTI, Recurrent DIRECTOR HEALTH History: Reports: Musculoskeletal History: Reports: Arthritis, Other (See Below) Other Musculoskeletal History: jeff knees. 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 - Infectious Disease History Infectious Disease History: Reports: Measles - Past Surgical History GI Surgical History: Reports: Cholecystectomy, Small Bowel Female Surgical History: Reports: Section, Hysterectomy Social & Family History - Family History Family Medical History: Noncontributory - Tobacco Use Smoking Status *Q: Never Smoker Second Hand Smoke Exposure: No - Caffeine Use Caffeine Use: Reports: None - Recreational Drug Use Recreational Drug Use: No - Living Situation & Occupation Living situation: Reports: with Family Occupation: Employed ED ROS GENERAL - Review of Systems Review Of Systems: ROS reveals no pertinent complaints other than HPI. ED EXAM, RENAL/ - Physical Exam Exam: See Below Exam Limited By: No Limitations General Appearance: Alert, WD/WN, No Apparent Distress Eye Exam: Bilateral Eye: EOMI, Normal Inspection Ears: Normal External Exam, Hearing Grossly Normal Nose: Normal Inspection Throat/Mouth: Normal Inspection, Normal Voice, No Airway Compromise Head: Atraumatic, Normocephalic Neck: Normal Inspection, Supple, Non-Tender, Full Range of Motion Respiratory/Chest: No Respiratory Distress, Lungs Clear, Normal Breath Sounds, No Accessory Muscle Use, Chest Non-Tender Cardiovascular: Normal Peripheral Pulses, Regular Rate, Rhythm, No Edema, No Gallop, No JVD, No Murmur, No Rub GI/Abdominal: Normal Bowel Sounds, Soft, Tender (RLQ, LLQ) (Female) Exam: Deferred Rectal (Female) Exam: Deferred Back Exam: Normal Inspection, CVA Tenderness (L), CVA Tenderness (R) Extremities: Normal Inspection, Normal Range of Motion, Non-Tender, No Pedal Edema, Normal Capillary Refill Neurological: Alert, Oriented, CN II-XII Intact, Normal Cognition, Normal Gait, Normal Reflexes, No Motor/Sensory Deficits Psychiatric: Normal Affect, Normal Mood Skin Exam: Warm, Dry, Intact, Normal Color, No Rash Lymphatic: No Adenopathy Course - Vital Signs Last Recorded V/S: Last Vital Signs Temp 95.9 F 01/15/19 02:17 Pulse 71 01/15/19 02:17 Resp 18 01/15/19 02:17 BP 107/62 01/15/19 02:17 Pulse Ox 97 01/15/19 02:17 - Orders/Labs/Meds Orders: Active Orders 24 hr Category Date Time Status Fluconazole [Diflucan] Med 01/15/19 02:47 Once 100 mg PO ONETIME ONE Nitrofurantoin [place]/Macrocryst [Macrobid] Med 01/15/19 02:47 Once 100 mg PO ONETIME ONE Labs: Laboratory Tests 01/15/19 Range/Units 02:30 Urine Color Yellow (YELLOW) Urine Appearance Slightly cloudy (CLEAR) Urine pH 5.0 (5.0-9.0) Ur Specific [place] 1.025 (1.005-1.030) Urine Protein Negative (NEGATIVE) Urine Glucose (UA) Negative (NEGATIVE) Urine Ketones Negative (NEGATIVE) Urine Occult Blood Trace-intact H (NEGATIVE) Urine Nitrite Negative (NEGATIVE) Urine Bilirubin Negative (NEGATIVE) Urine Urobilinogen 0.2 (0.2-1.0) mg/dL Ur Leukocyte Esterase Moderate H (NEGATIVE) Urine RBC 0-5 /HPF Urine WBC 40-50 H (0-5/HPF) /HPF Ur Epithelial Cells Moderate H /HPF Urine Bacteria Moderate H (0-FEW/HPF) /HPF Departure - Departure Time of Disposition: 02:48 Disposition: Home, Self-Care 01 Condition: Fair Clinical Impression: Vaginal yeast infection UTI (urinary tract infection) Qualifiers: Urinary tract infection type: acute cystitis Hematuria presence: without hematuria Qualified Code(s): N30.00 - Acute cystitis without hematuria - Discharge Information *PRESCRIPTION DRUG MONITORING PROGRAM REVIEWED*: No *COPY OF PRESCRIPTION DRUG MONITORING REPORT IN PATIENT [place]: No Instructions: Antibiotic Medicine, Adult, [id number], Urinary Tract Infection , Adult, [id number], You've Been Prescribed Antibiotics in the Hospital for Infection-[facility] (02/07), Vaginal Yeast Infection, Adult Forms: ED Department Discharge Additional Instructions: RX: Macrobid, Diflucan Drink plenty of fluids Follow up with your primary care facility - My Orders Last 24 Hours: My Active Orders 01/15/19 02:47 Fluconazole [Diflucan] 100 mg PO ONETIME ONE Nitrofurantoin [place]/Macrocryst [Macrobid] 100 mg PO ONETIME ONE - Assessment/Plan Last 24 Hours: My Active Orders 01/15/19 02:47 Fluconazole [Diflucan] 100 mg PO ONETIME ONE Nitrofurantoin [place]/Macrocryst [Macrobid] 100 mg PO ONETIME ONE
[2019-01-15] MEDS ORDERED: Nitrofurantoin Monohydrate/Macrocrystalline 100 MG Cap PO ONE (02:47)
[2019-01-15] MEDS ORDERED: Fluconazole 100 MG Tab PO ONE (02:47)
[2019-01-15] MEDS ORDERED: Phenazopyridine 95 MG Tab PO ONE (02:56)
== END 2019-01-15 03:03 | disposition home or self-care (01) ==
LOC: DL.ED 02:15
DX: N30.00 Acute cystitis without hematuria (principal); B37.3 Candidiasis of vulva and vagina; F41.9 Anxiety disorder, unspecified; F32.9 Major depressive disorder, single episode, unspecified; Z88.1 Allergy status to other antibiotic agents; Z79.899 Other long term (current) drug therapy; Z88.8 Allergy status to other drugs, medicaments and biological substances; Z90.49 Acquired absence of other specified parts of digestive tract; Z90.710 Acquired absence of both cervix and uterus
CPT/HCPCS: 81001; 87086; 99284; A9270

== ENCOUNTER 2019-01-23 18:41 | Emergency (ER) | payer OTHER ==
[2019-01-23 19:52] LABS: ANION GAP 14.6; CHLORIDE,CL 102 mmol/L (101-111); SODIUM,NA 137 mmol/L (135-145)
[2019-01-23] MEDS: Diphtheria,Pertussis(Acell),Tetanus Vaccine 0.5 ML SDV IM ONE (20:05)
--- NOTE | 2019-01-23 20:32 | EDM.PDOC ---
"ED HPI GENERAL MEDICAL PROBLEM - General Chief Complaint: Laceration Stated Complaint: HIT HER HEAD Time Seen by Provider: 01/23/19 19:20 Source of Information: Reports: Patient History Limitations: Reports: No Limitations - History of Present Illness INITIAL COMMENTS - FREE TEXT/NARRATIVE: ED via w/c with c/o fall x 2 at home while letting dog out, thinks possible loss of consciousness. Laceration to top of head. Fell approximately 4pm. No nausea or vomiting, No dizziness at present. Notes hx intermittent dizziness. Not on aspirin. Denies other injury. Posterior Head Pain Score (Numeric/FACES): 6 - Related Data Allergies Allergy/AdvReac Type Severity Reaction Status Date / Time levofloxacin Allergy Vomiting Verified 01/23/19 19:32 prochlorperazine Allergy Rash Verified 01/23/19 19:32 [From Compazine] comapazine Allergy Rash Uncoded 01/15/19 02:24 Home Meds: Home Meds Escitalopram [Lexapro] 20 mg PO DAILY 12/09/17 [History] ALPRAZolam [Alprazolam Xr] 2 mg PO TID 01/15/19 [History] QUEtiapine [SEROquel] 50 mg PO BEDTIME 01/15/19 [History] Escitalopram [Lexapro] 10 mg PO DAILY 01/23/19 [History] Past Medical History HEENT History: Reports: Impaired Vision Cardiovascular History: Reports: High Cholesterol Gastrointestinal History: Reports: Gastritis Other Gastrointestinal History: small intestine tumor Genitourinary History: Reports: UTI, Recurrent 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 - Infectious Disease History Infectious Disease History: Reports: Measles - Past Surgical History GI Surgical History: Reports: Cholecystectomy, Small Bowel Female Surgical History: Reports: Section, Hysterectomy Social & Family History - Family History Family Medical History: Noncontributory - Tobacco Use Smoking Status *Q: Never Smoker Second Hand Smoke Exposure: No - Caffeine Use Caffeine Use: Reports: None - Recreational Drug Use Recreational Drug Use: No - Living Situation & Occupation Living situation: Reports: with Family Occupation: Employed ED ROS GENERAL - Review of Systems Review Of Systems: ROS reveals no pertinent complaints other than HPI. ED EXAM, SKIN/RASH Exam: See Below Exam Limited By: No Limitations General Appearance: Alert, No Apparent Distress Eye Exam: Bilateral Eye: EOMI, PERRL (4mm) Ears: Normal External Exam, Hearing Grossly Normal, Normal TMs Nose: Normal Inspection Throat/Mouth: Normal Inspection Head: Normocephalic, Other (upper occipital laceration) Neck: Normal Inspection, Full Range of Motion. No: Tender Lateral, Tender Midline Respiratory/Chest: No Respiratory Distress, Lungs Clear, Normal Breath Sounds Cardiovascular: Normal Peripheral Pulses, Regular Rate, Rhythm GI/Abdominal: Normal Bowel Sounds, Soft Back Exam: Normal Inspection. No: Paraspinal Tenderness, Vertebral Tenderness Neurological: Alert, Oriented, CN II-XII Intact, Other (speech slow, no slurring ). No: Normal Cognition (slower response than patient's usual, ) Psychiatric: Normal Affect, Normal Mood Skin: Warm, Wound/Incision (3cm suuperficial upper occipital scalp laceration) Location, Skin: Head Course - Vital Signs Last Recorded V/S: Last Vital Signs Temp 97.5 F 01/23/19 19:20 Pulse 79 01/23/19 20:14 Resp 16 01/23/19 20:14 BP 103/64 01/23/19 20:14 Pulse Ox 98 01/23/19 20:14 - Orders/Labs/Meds Orders: Active Orders 24 hr Category Date Time Status EKG Documentation Completion [RC] URGENT Care 01/23/19 19:20 Active Vaccines to be Administered [RC] PER UNIT ROUTINE Care 01/23/19 19:48 Active Cervical Spine wo Cont [CT] Urgent Exams 01/23/19 19:19 Taken Head wo Cont [CT] Urgent Exams 01/23/19 19:19 Taken Labs: Laboratory Tests 01/23/19 01/23/19 01/23/19 Range/Units 19:29 19:29 20:10 WBC 8.9 (5.0-10.0) 10^3/uL RBC 4.41 (4.2-5.4) 10^6/uL Hgb 13.0 (12.0-16.0) g/dL Hct 39.5 (37.0-47.0) % MCV 89.6 (80-100) fL MCH 29.5 (27.0-34.0) pg MCHC 32.9 L (33.0-35.0) g/dL Plt Count 214 (150-450) 10^3/uL Neut % (Auto) 74.1 (42.2-75.2) % Lymph % (Auto) 15.0 L (20.5-50.1) % [place] % (Auto) 8.2 H (2-8) % Eos % (Auto) 2.0 (1.0-3.0) % Baso % (Auto) 0.7 (0.0-1.0) % Sodium 137 (135-145) mmol/L Potassium 3.6 (3.6-5.0) mmol/L Chloride 102 (101-111) mmol/L Carbon Dioxide 24.0 (21.0-31.0) mmol/L Anion Gap 14.6 BUN 15 (7-18) mg/dL Creatinine 0.9 (0.6-1.3) mg/dL Est Cr Clr Drug Dosing 66.01 mL/min Estimated GFR (MDRD) > 60 BUN/Creatinine Ratio 16.66 Glucose 111 H (74-105) mg/dL Calcium 9.3 (8.4-10.2) mg/dl Total Bilirubin 0.4 (0.2-1.0) mg/dL AST 30 (10-42) IU/L ALT 24 (10-60) IU/L Alkaline Phosphatase 116 (42-121) IU/L Troponin I < 0.02 (0.00-0.02) ng/ml Total Protein 7.0 (6.7-8.2) g/dl Albumin 3.7 (3.2-5.5) g/dl Globulin 3.3 Albumin/Globulin Ratio 1.12 Urine Color Yellow (YELLOW) Urine Appearance Slightly cloudy (CLEAR) Urine pH 5.0 (5.0-9.0) Ur Specific [place] 1.020 (1.005-1.030) Urine Protein Negative (NEGATIVE) Urine Glucose (UA) Negative (NEGATIVE) Urine Ketones Negative (NEGATIVE) Urine Occult Blood Trace-lysed H (NEGATIVE) Urine Nitrite Negative (NEGATIVE) Urine Bilirubin Negative (NEGATIVE) Urine Urobilinogen 0.2 (0.2-1.0) mg/dL Ur Leukocyte Esterase Moderate H (NEGATIVE) Urine RBC 0-5 /HPF Urine WBC 5-10 H (0-5/HPF) /HPF Ur Epithelial Cells Few /HPF Amorphous Sediment Few (0/HPF) /HPF Urine Bacteria Few (0-FEW/HPF) /HPF Urine Mucus Occasional /LPF Meds: Medications Discontinued Medications Generic Name Dose Route Start Last Admin Trade Name Freq PRN Reason Stop Dose Admin Diphtheria/Tetanus/Acell Pertussis 0.5 ml 01/23/19 19:47 01/23/19 20:05 Adacel IM 01/23/19 19:48 0.5 ml .ONCE ONE Administration - Radiology Interpretation Free Text/Narrative:: [facility] Final Radiology Report Call: [phone] assistance Online chat: [email or web address] Name: CORTES RUCKER Age: 48Years F Date: 01/23/2019 SSN: -- : [id number] Study: CT SPINE CERVICAL WO Requesting Physician: EZEQUIEL HANNA Images: [id number] Addl Studies: Provided Clinical History: Fall x 2 hit head, slow speech Contrast: Without Contrast Medium: Contrast Amount: Contrast Method: Page 1 of 2 EXAM: CT Cervical Spine Without Contrast EXAM DATE/TIME: 01/23/2019 7:34 PM CLINICAL HISTORY: 48 years old, female; Injury or trauma; Fall; Initial encounter; Blunt trauma; Additional info: Fall x 2 hit head, slow speech TECHNIQUE: Imaging protocol: Axial computed tomography images of the cervical spine without intravenous contrast. Coronal and sagittal reformatted images were created and reviewed. Radiation optimization: All CT scans at this facility use at least one of these dose optimization techniques: automated exposure control; mA and/or kV adjustment per patient size (includes targeted exams where dose is matched to clinical indication); or iterative reconstruction. COMPARISON: No relevant prior studies available. FINDINGS: Vertebrae: No spondylolisthesis. No acute fracture or traumatic subluxation. The atlantooccipital and atlantoaxial articulations are intact. Facet joint alignments are maintained. Multilevel degenerative changes of the cervical spine. Discs/Spinal canal/Neural foramina: Age-related degenerative disc disease. Other bones/joints: Occipital condyles are intact. Prevertebral Space: No prevertebral soft tissue swelling. Soft tissues: Unremarkable. Lungs: Lung apices are normal. IMPRESSION: CORTES RUCKER | Final Radiology Report CONFIDENTIALITY STATEMENT This report is intended only for use by the referring physician, and only in accordance with law. If you received this in error, call [phone]. Page 2 of 2 No acute fracture or traumatic subluxation. Thank you for allowing us to participate in the care of your patient. Dictated and Authenticated by: Bairon Hamilton MD 01/23/2019 8:26 PM [facility] Final Radiology Report Call: [phone] assistance Online chat: [email or web address] Name: CORTES RUCKER Age: 48Years F Date: 01/23/2019 SSN: -- : 1970 Study: CT HEAD WO Requesting Physician: EZEQUIEL HANNA Images: [id number] Addl Studies: Provided Clinical History: Fall x 2 hit head, slow speech Contrast: Without Contrast Medium: Contrast Amount: Contrast Method: Page 1 of 2 EXAM: CT Head Without Contrast EXAM DATE/TIME: 01/23/2019 7:34 PM CLINICAL HISTORY: 48 years old, female; Injury or trauma; Fall; Initial encounter; Blunt trauma ( contusions or hematomas); Consciousness not specified; Injury details: Fall x 2 hit head, slow speech TECHNIQUE: Imaging protocol: Axial computed tomography images of the head/brain without contrast. Coronal and sagittal reformatted images were created and reviewed. Radiation optimization: All CT scans at this facility use at least one of these dose optimization techniques: automated exposure control; mA and/or kV adjustment per patient size (includes targeted exams where dose is matched to clinical indication); or iterative reconstruction. COMPARISON: No relevant prior studies available. FINDINGS: Brain: No evidence for acute transcortical infarct. No mass effect or midline shift. No extra-axial collection. No acute intracranial hemorrhage. Basal cisterns are patent. Ventricles: Normal. No ventriculomegaly. Bones/joints: No acute calvarial fracture. Sinuses: Visualized sinuses are unremarkable. No acute sinusitis. Mastoid air cells: Visualized mastoid air cells are unremarkable. No mastoid effusion. Soft tissues: Left parietal scalp swelling and laceration. No radiopaque foreign body. IMPRESSION: 1. Left parietal scalp swelling and laceration. No radiopaque foreign body. No acute calvarial fracture. CORTES RUCKER | Final Radiology Report CONFIDENTIALITY STATEMENT This report is intended only for use by the referring physician, and only in accordance with law. If you received this in error, call [phone]. Page 2 of 2 2. No acute intracranial hemorrhage or mass effect. Thank you for allowing us to participate in the care of your patient. Dictated and Authenticated by: Bairon Hamilton MD 01/23/2019 8:24 PM Central Time ([place] & [place]) - Re-Assessments/Exams Free Text/Narrative Re-Assessment/Exam: 01/23/19 21:[address] Lance GRIFFIN hospitalist recommend tx. Dr Terry Noriega accepting of patient further monitoring of minor closed head injury. Tx via LRAS. Remain alert oriented. no decline in neuro status since presentation. GCS 15 Departure - Departure Time of Disposition: 21:35 Disposition: Home, Self-Care 01 Condition: Good Clinical Impression: Broken skin Fall Qualifiers: Encounter type: initial encounter Qualified Code(s): W19.XXXA - Unspecified fall, initial encounter Concussion Qualifiers: Encounter type: initial encounter Loss of consciousness presence/duration: with LOC of unspecified duration Qualified Code(s): S06.0X9A - Concussion with loss of consciousness of unspecified duration, initial encounter - Discharge Information Forms: ED Department Discharge - My Orders Last 24 Hours: My Active Orders 01/23/19 19:19 Cervical Spine wo Cont [CT] Urgent Head wo Cont [CT] Urgent 01/23/19 19:20 EKG Documentation Completion [RC] URGENT 01/23/19 19:48 Vaccines to be Administered [RC] PER UNIT ROUTINE - Assessment/Plan Last 24 Hours: My Active Orders 01/23/19 19:19 Cervical Spine wo Cont [CT] Urgent Head wo Cont [CT] Urgent 01/23/19 19:20 EKG Documentation Completion [RC] URGENT 01/23/19 19:48 Vaccines to be Administered [RC] PER UNIT ROUTINE"
[2019-01-23 21:31] VITALS: BP 111/66
== END 2019-01-23 21:35 | disposition home or self-care (01) ==
LOC: DL.ED 18:41
DX: S06.0X9A Concussion with loss of consciousness of unspecified duration, initial encounter (principal); S01.01XA Laceration without foreign body of scalp, initial encounter; Z23 Encounter for immunization; Z79.899 Other long term (current) drug therapy; W19.XXXA Unspecified fall, initial encounter
CPT/HCPCS: 36415; 70450; 72125; 80053; 80305-QW; 81001; 84484; 85025; 90471; 90715; 93005; 99285-25

== ENCOUNTER 2019-02-04 21:16 | Emergency (ER) | payer OTHER ==
[2019-02-04 21:25] VITALS: BP 116/77
[2019-02-04] MEDS ORDERED: Ondansetron 4 MG/2 ML SDV IV ONE (21:52)
[2019-02-04] MEDS ORDERED: Sodium Chloride 0.9% 10 ML Syringe FLUSH PRN (21:52)
[2019-02-04] MEDS ORDERED: Lactated Ringers 1,000 ML IV ONE ×2 (21:52→23:25)
[2019-02-04 22:36] LABS: ANION GAP 15.6; CHLORIDE,CL 100 mmol/L (101-111); SODIUM,NA 136 mmol/L (135-145)
[2019-02-04] MEDS ORDERED: Potassium Chloride 10 MEQ Tab.ER PO ONE (22:39)
[2019-02-04] MEDS ORDERED: Potassium Chloride 20 MEQ in Premix Bag 1 BAG IV ONE (22:39)
--- NOTE | 2019-02-05 00:56 | EDM.PDOC ---
ED HPI GENERAL MEDICAL PROBLEM - General Chief Complaint: Gastrointestinal Problem Stated Complaint: HARD TIME PEEING,DEHYDRATED [id number] Time Seen by Provider: 02/04/19 21:45 Source of Information: Reports: Patient, RN, RN Notes Reviewed History Limitations: Reports: No Limitations - History of Present Illness INITIAL COMMENTS - FREE TEXT/NARRATIVE: Pt to ER with c/o diarrhea for the past few days. She states she has not had vomiting, just diarrhea. She states she feels as if she is dehydrated. She states she has some bright red blood in the toilet after each stool. She states about 3-5 loose stools per day. Pt states she fell and hit her head a few weeks ago and is having more dizziness again now in the past few days. Onset: Gradual - Related Data Allergies Allergy/AdvReac Type Severity Reaction Status Date / Time levofloxacin Allergy Vomiting Verified 02/04/19 21:25 prochlorperazine Allergy Rash Verified 02/04/19 21:25 [From Compazine] comapazine Allergy Rash Uncoded 01/15/19 02:24 Home Meds: Home Meds Escitalopram [Lexapro] 20 mg PO DAILY 12/09/17 [History] Aspirin [Halfprin] 81 mg PO DAILY 02/04/19 [History] Past Medical History HEENT History: Reports: Impaired Vision Cardiovascular History: Reports: High Cholesterol Gastrointestinal History: Reports: Gastritis Other Gastrointestinal History: small intestine tumor Genitourinary History: Reports: UTI, Recurrent 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 - Infectious Disease History Infectious Disease History: Reports: Measles - Past Surgical History GI Surgical History: Reports: Cholecystectomy, Small Bowel Female Surgical History: Reports: Section, Hysterectomy Social & Family History - Family History Family Medical History: Noncontributory - Tobacco Use Smoking Status *Q: Never Smoker Second Hand Smoke Exposure: Yes - Caffeine Use Caffeine Use: Reports: Soda - Recreational Drug Use Recreational Drug Use: No - Living Situation & Occupation Living situation: Reports: with Family Occupation: Employed ED ROS GENERAL - Review of Systems Review Of Systems: ROS reveals no pertinent complaints other than HPI. ED EXAM, GENERAL - Physical Exam Exam: See Below Exam Limited By: No Limitations General Appearance: Alert, WD/WN, No Apparent Distress Eye Exam: Bilateral Eye: EOMI, Normal Inspection Ears: Normal External Exam, Hearing Grossly Normal Nose: Normal Inspection Throat/Mouth: Normal Voice, No Airway Compromise, Other (dry mucous membranes) Head: Atraumatic, Normocephalic Neck: Normal Inspection, Supple, Non-Tender, Full Range of Motion Respiratory/Chest: No Respiratory Distress, Lungs Clear, Normal Breath Sounds, No Accessory Muscle Use, Chest Non-Tender Cardiovascular: Normal Peripheral Pulses, Regular Rate, Rhythm, No Edema, No Gallop, No JVD, No Murmur, No Rub Peripheral Pulses: 2+: Radial (L), Radial (R) GI/Abdominal: Normal Bowel Sounds, Soft, Non-Tender (Female) Exam: Deferred Rectal (Female) Exam: Deferred Back Exam: Normal Inspection, Full Range of Motion, NT Extremities: Normal Inspection, Normal Range of Motion, Non-Tender, Normal Capillary Refill, No Pedal Edema Neurological: Alert, Oriented, CN II-XII Intact, Normal Cognition, Normal Gait, Normal Reflexes, No Motor/Sensory Deficits Psychiatric: Normal Affect, Normal Mood Skin Exam: Warm, Dry, Intact, No Rash, Pallor Lymphatic: No Adenopathy Course - Vital Signs Last Recorded V/S: Last Vital Signs Temp 96.6 F 02/04/19 21:22 Pulse 85 02/04/19 21:22 Resp 17 02/04/19 21:22 BP 116/77 02/04/19 21:22 Pulse Ox 98 02/04/19 21:22 - Orders/Labs/Meds Orders: Active Orders 24 hr Category Date Time Status Peripheral IV Care [RC] . DIRECTED Care 02/04/19 21:53 Active CULTURE URINE [RM] Stat Lab 02/04/19 21:58 Received Sodium Chloride 0.9% [Saline Flush] Med 02/04/19 21:52 Active 10 ml FLUSH ASDIRECTED PRN Peripheral IV Insertion Adult [OM.PC] Stat Oth 02/04/19 21:51 Ordered Medication Orders Sodium Chloride (Saline Flush) 10 ml FLUSH ASDIRECTED PRN PRN Reason: Keep Vein Open Labs: Laboratory Tests 02/04/19 02/04/19 02/04/19 Range/Units 21:58 22:06 22:06 WBC 14.8 H (5.0-10.0) 10^3/uL RBC 4.83 (4.2-5.4) 10^6/uL Hgb 14.2 (12.0-16.0) g/dL Hct 42.3 (37.0-47.0) % MCV 87.6 (80-100) fL MCH 29.4 (27.0-34.0) pg MCHC 33.6 (33.0-35.0) g/dL Plt Count 301 D (150-450) 10^3/uL Neut % (Auto) 76.8 H (42.2-75.2) % Lymph % (Auto) 15.5 L (20.5-50.1) % [place] % (Auto) 6.5 (2-8) % Eos % (Auto) 0.8 L (1.0-3.0) % Baso % (Auto) 0.4 (0.0-1.0) % Sodium 136 (135-145) mmol/L Potassium 2.6 L (3.6-5.0) mmol/L Chloride 100 L (101-111) mmol/L Carbon Dioxide 23.0 (21.0-31.0) mmol/L Anion Gap 15.6 BUN 8 (7-18) mg/dL Creatinine 0.9 (0.6-1.3) mg/dL Est Cr Clr Drug Dosing 66.01 mL/min Estimated GFR (MDRD) > 60 BUN/Creatinine Ratio 8.88 Glucose 92 (74-105) mg/dL Calcium 9.3 (8.4-10.2) mg/dl Total Bilirubin 0.7 (0.2-1.0) mg/dL AST 26 (10-42) IU/L ALT 20 (10-60) IU/L Alkaline Phosphatase 114 (42-121) IU/L Total Protein 7.7 (6.7-8.2) g/dl Albumin 4.3 (3.2-5.5) g/dl Globulin 3.4 Albumin/Globulin Ratio 1.26 Urine Color Yellow (YELLOW) Urine Appearance Turbid (CLEAR) Urine pH 5.5 (5.0-9.0) Ur Specific [place] >= 1.030 (1.005-1.030) Urine Protein 100 H (NEGATIVE) Urine Glucose (UA) Negative (NEGATIVE) Urine Ketones Negative (NEGATIVE) Urine Occult Blood Trace-intact H (NEGATIVE) Urine Nitrite Negative (NEGATIVE) Urine Bilirubin Small H (NEGATIVE) Urine Urobilinogen 0.2 (0.2-1.0) mg/dL Ur Leukocyte Esterase Trace H (NEGATIVE) Urine RBC 5-10 H /HPF Urine WBC 10-20 H (0-5/HPF) /HPF Ur Epithelial Cells Moderate H /HPF Calcium Oxalate Crystal Moderate H /HPF Urine Bacteria Many H (0-FEW/HPF) /HPF Meds: Medications Generic Name Dose Route Start Last Admin Trade Name Freq PRN Reason Stop Dose Admin Sodium Chloride 10 ml 02/04/19 21:52 Saline Flush FLUSH ASDIRECTED PRN Keep Vein Open Discontinued Medications Generic Name Dose Route Start Last Admin Trade Name Freq PRN Reason Stop Dose Admin Lactated Ringer's 1,000 mls @ 999 mls/hr 02/04/19 21:52 02/04/19 22:07 Ringers, Lactated IV 02/04/19 22:52 999 mls/hr .BOLUS ONE Administration Potassium Chloride 20 meq/ 100 mls @ 50 mls/hr 02/04/19 22:39 02/04/19 23:02 Premix IV 02/05/19 00:38 50 mls/hr ONETIME ONE Administration Lactated Ringer's 1,000 mls @ 999 mls/hr 02/04/19 23:25 02/04/19 23:27 Ringers, Lactated IV 02/05/19 00:25 500 mls/hr .BOLUS ONE Infusion Ondansetron HCl 4 mg 02/04/19 21:52 02/04/19 22:07 Zofran IV 02/04/19 21:53 4 mg ONETIME ONE Administration Potassium Chloride 40 meq 02/04/19 22:39 02/04/19 23:00 Klor-Con 10 PO 02/04/19 22:40 40 meq ONETIME ONE Administration Departure - Departure Time of Disposition: 01:17 Disposition: Home, Self-Care 01 Condition: Fair Clinical Impression: Hypokalemia Diarrhea Qualifiers: Diarrhea type: unspecified type Qualified Code(s): R19.7 - Diarrhea, unspecified - Discharge Information *PRESCRIPTION DRUG MONITORING PROGRAM REVIEWED*: No *COPY OF PRESCRIPTION DRUG MONITORING REPORT IN PATIENT [place]: No Instructions: Viral Gastroenteritis, Adult, [id number], Hypokalemia, Food Choices to Help Relieve Diarrhea, Adult, Nausea and Vomiting, Adult, Easy-to- Read, Dehydration, Adult, [id number], Potassium Content of Foods, Diarrhea, Adult, [id number] Forms: ED Department Discharge Additional Instructions: Drink plenty of water and gatorade Take oral Potassium as directed for 2 weeks Follow up in the clinic in 1 week for recheck of labs - My Orders Last 24 Hours: My Active Orders 02/04/19 21:51 Peripheral IV Insertion Adult [OM.PC] Stat 02/04/19 21:52 Sodium Chloride 0.9% [Saline Flush] 10 ml FLUSH ASDIRECTED PRN 02/04/19 21:53 Peripheral IV Care [RC] . DIRECTED 02/04/19 21:58 CULTURE URINE [RM] Stat - Assessment/Plan Last 24 Hours: My Active Orders 02/04/19 21:51 Peripheral IV Insertion Adult [OM.PC] Stat 02/04/19 21:52 Sodium Chloride 0.9% [Saline Flush] 10 ml FLUSH ASDIRECTED PRN 02/04/19 21:53 Peripheral IV Care [RC] . DIRECTED 02/04/19 21:58 CULTURE URINE [RM] Stat
== END 2019-02-05 01:15 | disposition home or self-care (01) ==
LOC: DL.ED 21:16
DX: E87.6 Hypokalemia (principal); E78.00 Pure hypercholesterolemia, unspecified; F41.9 Anxiety disorder, unspecified; F32.9 Major depressive disorder, single episode, unspecified; Z77.22 Contact with and (suspected) exposure to environmental tobacco smoke (acute) (chronic); Z88.1 Allergy status to other antibiotic agents; Z88.8 Allergy status to other drugs, medicaments and biological substances; Z79.899 Other long term (current) drug therapy; Z79.82 Long term (current) use of aspirin
CPT/HCPCS: 36415; 80053; 81001; 82272; 85025; 87086; 96361; 96365; 96366; 96375; 99284-25; A9270-GY; J2405; J3480; J7120

== ENCOUNTER 2019-02-06 21:25 | Emergency (ER) | payer OTHER ==
[2019-02-06 22:20] LABS: ANION GAP 12.1; CHLORIDE,CL 104 mmol/L (101-111); SODIUM,NA 138 mmol/L (135-145)
[2019-02-06 22:26] VITALS: BP 113/74
[2019-02-06] MEDS ORDERED: Nitrofurantoin Monohydrate/Macrocrystalline 100 MG Cap PO ONE (22:33)
[2019-02-06] MEDS ORDERED: Phenazopyridine 95 MG Tab PO ONE (22:34)
--- NOTE | 2019-02-06 22:35 | EDM.PDOC ---
ED HPI GENERAL MEDICAL PROBLEM - General Chief Complaint: Genitourinary Problem Stated Complaint: UTI? Time Seen by Provider: 02/06/19 21:45 Source of Information: Reports: Patient, RN Notes Reviewed History Limitations: Reports: No Limitations - History of Present Illness INITIAL COMMENTS - FREE TEXT/NARRATIVE: ED with c/o urinary frequency and burning starting today, Fever and chills, No nausea or vomiting. Pelvic Pain Score (Numeric/FACES): 5 - Related Data Allergies Allergy/AdvReac Type Severity Reaction Status Date / Time levofloxacin Allergy Vomiting Verified 02/06/19 21:37 prochlorperazine Allergy Rash Verified 02/06/19 21:37 [From Compazine] comapazine Allergy Rash Uncoded 02/06/19 21:37 Home Meds: Home Meds Escitalopram [Lexapro] 20 mg PO DAILY 12/09/17 [History] Aspirin [Halfprin] 81 mg PO DAILY 02/04/19 [History] ALPRAZolam [Alprazolam] 0.5 g PO TID PRN 02/06/19 [History] Past Medical History HEENT History: Reports: Impaired Vision Cardiovascular History: Reports: High Cholesterol Gastrointestinal History: Reports: Gastritis Other Gastrointestinal History: small intestine tumor Genitourinary History: Reports: UTI, Recurrent 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 - Infectious Disease History Infectious Disease History: Reports: Measles - Past Surgical History GI Surgical History: Reports: Cholecystectomy, Small Bowel Female Surgical History: Reports: Section, Hysterectomy Social & Family History - Family History Family Medical History: Noncontributory - Caffeine Use Caffeine Use: Reports: Soda - Living Situation & Occupation Living situation: Reports: with Family Occupation: Employed ED ROS GENERAL - Review of Systems Review Of Systems: See Below Constitutional: Reports: No Symptoms HEENT: Reports: No Symptoms Respiratory: Reports: No Symptoms Cardiovascular: Reports: No Symptoms GI/Abdominal: Reports: Abdominal Pain (suproapubic) : Reports: Dysuria, Frequency, Urgency. Denies: Hematuria Skin: Reports: No Symptoms Neurological: Reports: No Symptoms ED EXAM, RENAL/ - Physical Exam Exam: See Below Exam Limited By: No Limitations General Appearance: Alert, No Apparent Distress Eye Exam: Bilateral Eye: EOMI Ears: Normal External Exam, Hearing Grossly Normal Nose: Normal Inspection Throat/Mouth: Normal Inspection, Normal Lips Head: Atraumatic, Normocephalic Neck: Normal Inspection Respiratory/Chest: No Respiratory Distress, Lungs Clear, Normal Breath Sounds Cardiovascular: Normal Peripheral Pulses, Regular Rate, Rhythm GI/Abdominal: Normal Bowel Sounds, Soft, Tender (mild suprapubic). No: No Distention, Guarding Back Exam: Normal Inspection Neurological: Alert, Oriented, Normal Cognition Psychiatric: Flat Affect Skin Exam: Warm, Dry, Intact, Normal Color Course - Vital Signs Last Recorded V/S: Last Vital Signs Temp 96.8 F 02/06/19 22:25 Pulse 72 02/06/19 22:25 Resp 18 02/06/19 22:25 BP 113/74 02/06/19 22:25 Pulse Ox 97 02/06/19 22:25 - Orders/Labs/Meds Orders: Active Orders 24 hr Category Date Time Status BMP [BASIC METABOLIC PANEL,BMP] [CHEM] Stat Lab 02/06/19 21:55 Received CULTURE URINE [RM] Urgent Lab 02/06/19 21:34 Received Labs: Laboratory Tests 02/06/19 02/06/19 Range/Units 21:34 21:55 WBC 7.2 (5.0-10.0) 10^3/uL RBC 4.46 (4.2-5.4) 10^6/uL Hgb 13.3 (12.0-16.0) g/dL Hct 39.7 (37.0-47.0) % MCV 89.0 (80-100) fL MCH 29.8 (27.0-34.0) pg MCHC 33.5 (33.0-35.0) g/dL Plt Count 254 (150-450) 10^3/uL Neut % (Auto) 56.7 (42.2-75.2) % Lymph % (Auto) 32.9 (20.5-50.1) % [place] % (Auto) 7.3 (2-8) % Eos % (Auto) 2.5 (1.0-3.0) % Baso % (Auto) 0.6 (0.0-1.0) % Urine Color Yellow (YELLOW) Urine Appearance Clear (CLEAR) Urine pH 7.0 (5.0-9.0) Ur Specific [place] 1.015 (1.005-1.030) Urine Protein Negative (NEGATIVE) Urine Glucose (UA) Negative (NEGATIVE) Urine Ketones Negative (NEGATIVE) Urine Occult Blood Negative (NEGATIVE) Urine Nitrite Negative (NEGATIVE) Urine Bilirubin Negative (NEGATIVE) Urine Urobilinogen 0.2 (0.2-1.0) mg/dL Ur Leukocyte Esterase Moderate H (NEGATIVE) Urine RBC 0-5 /HPF Urine WBC 5-10 H (0-5/HPF) /HPF Ur Epithelial Cells Few /HPF Urine Bacteria Few (0-FEW/HPF) /HPF Departure - Departure Time of Disposition: 22:31 Disposition: Home, Self-Care 01 Condition: Good Clinical Impression: UTI (urinary tract infection) Qualifiers: Urinary tract infection type: acute cystitis Hematuria presence: without hematuria Qualified Code(s): N30.00 - Acute cystitis without hematuria - Discharge Information *PRESCRIPTION DRUG MONITORING PROGRAM REVIEWED*: Not Applicable *COPY OF PRESCRIPTION DRUG MONITORING REPORT IN PATIENT [place]ARK: Not Applicable Instructions: Urinary Tract Infection, Adult Additional Instructions: increase fluids nitrofurantion 100mg ER one twice daily for 5 days Pyridium 200mg one every 8 hours as needed for urinary symptoms #10 Follow up if symptoms worsen - My Orders Last 24 Hours: My Active Orders 02/06/19 21:34 CULTURE URINE [RM] Urgent 02/06/19 21:55 BMP [BASIC METABOLIC PANEL,BMP] [CHEM] Stat - Assessment/Plan Last 24 Hours: My Active Orders 02/06/19 21:34 CULTURE URINE [RM] Urgent 02/06/19 21:55 BMP [BASIC METABOLIC PANEL,BMP] [CHEM] Stat
== END 2019-02-06 22:43 | disposition home or self-care (01) ==
LOC: DL.ED 21:25
DX: N30.00 Acute cystitis without hematuria (principal); E78.00 Pure hypercholesterolemia, unspecified; Z88.1 Allergy status to other antibiotic agents; Z88.8 Allergy status to other drugs, medicaments and biological substances; Z79.899 Other long term (current) drug therapy; Z79.82 Long term (current) use of aspirin
CPT/HCPCS: 36415; 80048; 81001; 85025; 87086; 99283; A9270-GY

== ENCOUNTER 2020-05-12 19:10 | Emergency (ER) | payer OTHER ==
--- NOTE | 2020-05-12 20:00 | CR ---
PROCEDURE INFORMATION: Exam: XR Chest, 1 View Exam date and time: 05/12/2020 7:53 PM Age: 49 years old Clinical indication: Chest pain; Type not specified TECHNIQUE: Imaging protocol: XR of the chest Views: 1 view. COMPARISON: No relevant prior studies available. FINDINGS: Lungs: Appear clear radiographically. Pleural space: No pleural effusions. No pneumothorax. Heart/Mediastinum: No significant cardiomegaly. Bones/joints: No acute abnormality. IMPRESSION: 1. No radiographic evidence of acute disease in the chest. 2. See above for remaining findings.
[2020-05-12 20:14] LABS: ANION GAP 10.3 mEq/L (7-13); CHLORIDE,CL 103 mmol/L (98-107); SODIUM,NA 141 mmol/L (136-145)
[2020-05-12 20:49] VITALS: BP 98/59; PULSE 64
--- NOTE | 2020-05-12 20:51 | EDM.PDOC ---
ED HPI GENERAL MEDICAL PROBLEM - General Chief Complaint: Chest Pain Stated Complaint: CHEST PAIN Time Seen by Provider: 05/12/20 19:30 Source of Information: Reports: Patient History Limitations: Reports: No Limitations - History of Present Illness INITIAL COMMENTS - FREE TEXT/NARRATIVE: ED with c/o anterior chest pain more on left describes as sharp No radiation to jaw or arm. no nausea or sweating.No SOB No fever or chills . [place] unsteady at work, Pain onset around 5 while walking. Chest Pain Score (Numeric/FACES): 9 - Related Data Allergies Allergy/AdvReac Type Severity Reaction Status Date / Time levofloxacin Allergy Vomiting Verified 05/12/20 19:23 prochlorperazine Allergy Rash Verified 05/12/20 19:23 [From Compazine] comapazine Allergy Rash Uncoded 05/12/20 19:23 Home Meds: Home Meds Escitalopram [Lexapro] 20 mg PO DAILY 12/09/17 [History] Aspirin [Halfprin] 81 mg PO DAILY 02/04/19 [History] ALPRAZolam [Alprazolam] 0.5 g PO TID PRN 02/06/19 [History] Past Medical History HEENT History: Reports: Impaired Vision Cardiovascular History: Reports: High Cholesterol Gastrointestinal History: Reports: Gastritis Other Gastrointestinal History: small intestine tumor Genitourinary History: Reports: UTI, Recurrent 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 Dermatologic History: Reports: None - Infectious Disease History Infectious Disease History: Reports: Measles - Past Surgical History GI Surgical History: Reports: Cholecystectomy, Small Bowel Female Surgical History: Reports: Section, Hysterectomy Social & Family History - Family History Family Medical History: Noncontributory - Tobacco Use Smoking Status *Q: Never Smoker - Caffeine Use Caffeine Use: Reports: Soda - Recreational Drug Use Recreational Drug Use: No - Living Situation & Occupation Living situation: Reports: with Family Occupation: Employed ED ROS GENERAL - Review of Systems Review Of Systems: Comprehensive ROS is negative, except as noted in HPI. ED EXAM, GENERAL - Physical Exam Exam: See Below Exam Limited By: No Limitations General Appearance: Alert, No Apparent Distress, Anxious Eye Exam: Bilateral Eye: EOMI, PERRL Ears: Normal External Exam Nose: Normal Inspection, Normal Mucosa Throat/Mouth: Normal Inspection Head: Atraumatic, Normocephalic Neck: Normal Inspection Respiratory/Chest: No Respiratory Distress, Lungs Clear, Normal Breath Sounds, No Accessory Muscle Use. No: Chest Non-Tender (left anterior mid clvicular tender withlight palation able to reproduce pain) Cardiovascular: Normal Peripheral Pulses, Regular Rate, Rhythm GI/Abdominal: Normal Bowel Sounds, Soft Extremities: Normal Inspection Neurological: Alert, Oriented, Normal Cognition Psychiatric: Flat Affect Skin Exam: Warm, Dry, Intact, Normal Color Course - Vital Signs Last Recorded V/S: Last Vital Signs Temp 96.6 F L 05/12/20 19:23 Pulse 64 05/12/20 20:49 Resp 18 05/12/20 20:49 BP 98/59 L 05/12/20 20:49 Pulse Ox 98 05/12/20 20:49 - Orders/Labs/Meds Labs: Laboratory Tests 05/12/20 05/12/20 05/12/20 Range/Units 19:41 19:41 19:45 WBC 6.6 (5.0-10.0) 10^3/uL RBC 4.28 (4.2-5.4) 10^6/uL Hgb 13.1 (12.0-16.0) g/dL Hct 40.2 (37.0-47.0) % MCV 93.9 D (80-100) fL MCH 30.6 (27.0-34.0) pg MCHC 32.6 L (33.0-35.0) g/dL Plt Count 168 (150-450) 10^3/uL Neut % (Auto) 55.9 (42.2-75.2) % Lymph % (Auto) 33.1 (20.5-50.1) % [place] % (Auto) 7.3 (2-8) % Eos % (Auto) 2.9 (1.0-3.0) % Baso % (Auto) 0.8 (0.0-1.0) % Sodium 141 (136-145) mmol/L Potassium 3.3 L (3.5-5.1) mmol/L Chloride 103 (98-107) mmol/L Carbon Dioxide 31 (21-32) mmol/L Anion Gap 10.3 (7-13) mEq/L BUN 8 (7-18) mg/dL Creatinine 0.91 (0.55-1.02) mg/dL Est Cr Clr Drug Dosing 64.58 mL/min Estimated GFR (MDRD) > 60 BUN/Creatinine Ratio 8.8 (No establ ref range) Glucose 100 H (74-99) mg/dL Calcium 8.9 (8.5-10.1) mg/dL Total Bilirubin 0.2 (0.2-1.0) mg/dL AST 35 (15-37) U/L ALT 47 (14-59) U/L Alkaline Phosphatase 115 (46-116) U/L Troponin I < 0.017 (0.000-0.056) ng/mL Total Protein 7.4 (6.4-8.2) g/dL Albumin 3.8 (3.4-5.0) g/dL Globulin 3.6 Albumin/Globulin Ratio 1.1 Amylase 100 (25-115) U/L Lipase 225 (73-393) U/L Urine Color Yellow (YELLOW) Urine Appearance Slightly cloudy (CLEAR) Urine pH 7.0 (5.0-9.0) Ur Specific [place] 1.010 (1.005-1.030) Urine Protein Negative (NEGATIVE) Urine Glucose (UA) Negative (NEGATIVE) Urine Ketones Negative (NEGATIVE) Urine Occult Blood Trace-intact H (NEGATIVE) Urine Nitrite Negative (NEGATIVE) Urine Bilirubin Negative (NEGATIVE) Urine Urobilinogen 0.2 (0.2-1.0) mg/dL Ur Leukocyte Esterase Moderate H (NEGATIVE) Urine RBC 5-10 H /HPF Urine WBC 5-10 H (0-5/HPF) /HPF Ur Epithelial Cells Few (NOT SEEN) /HPF Urine Bacteria Rare (0-FEW/HPF) /HPF Urine Mucus Few H (NOT SEEN) /LPF Meds: Medications Discontinued Medications Generic Name Dose Route Start Last Admin Trade Name Freq PRN Reason Stop Dose Admin Nitrofurantoin Macrocrystals 100 mg 05/12/20 21:02 05/12/20 21:06 Macrobid PO 07/21/20 21:03 100 mg ONETIME ONE Administration Departure - Departure Time of Disposition: 21:05 Disposition: Home, Self-Care 01 Clinical Impression: Costochondral chest pain UTI (urinary tract infection) Qualifiers: Urinary tract infection type: acute cystitis Hematuria presence: without hematuria Qualified Code(s): N30.00 - Acute cystitis without hematuria Instructions: Urinary Tract Infection, Adult, [id number]-hd-Joyu Forms: ED Department Discharge Additional Instructions: macrobid 100mg one twice daily for 7 days recheck clinic monday tylenol or ibuprofen , may alternate every 4 hours as needed for discomfort increase fluids Sepsis Event Note (ED) - Evaluation Sepsis Screening Result: No Definite Risk
[2020-05-12] MEDS ORDERED: Nitrofurantoin Monohydrate/Macrocrystalline 100 MG Cap PO ONE (21:02)
== END 2020-05-12 21:10 | disposition home or self-care (01) ==
LOC: DL.ED 19:10
DX: R07.1 Chest pain on breathing (principal); N30.00 Acute cystitis without hematuria; F41.9 Anxiety disorder, unspecified; F32.9 Major depressive disorder, single episode, unspecified; Z88.1 Allergy status to other antibiotic agents; Z88.8 Allergy status to other drugs, medicaments and biological substances; Z79.899 Other long term (current) drug therapy; Z79.82 Long term (current) use of aspirin
CPT/HCPCS: 36415; 71045; 80053; 81001; 82150; 83690; 84484; 85025; 87086; 93005; 99285; A9270

== ENCOUNTER 2020-06-05 19:37 | Emergency (ER) | payer OTHER ==
[2020-06-05 19:49] VITALS: BP 117/77; PULSE 80
--- NOTE | 2020-06-05 20:01 | EDM.PDOC ---
ED HPI GENERAL MEDICAL PROBLEM - General Chief Complaint: Lower Extremity Injury/Pain Stated Complaint: LEFT ANKLE IN SEVERE PAIN Time Seen by Provider: 06/05/20 19:55 Source of Information: Reports: Patient, RN, RN Notes Reviewed History Limitations: Reports: No Limitations - History of Present Illness INITIAL COMMENTS - FREE TEXT/NARRATIVE: Patient presents to ER with complaint of left foot pain. Patient states the pain began while she was at work today, states no trauma and does not remember doing anything to the foot. Patient states she has had hairline fractures in th e right foot in the past. Is able to wiggle the toes, minimal swelling. Onset: Today, Sudden Left Feet Pain Score (Numeric/FACES): 10 - Related Data Allergies Allergy/AdvReac Type Severity Reaction Status Date / Time levofloxacin Allergy Vomiting Verified 06/05/20 20:00 prochlorperazine Allergy Rash Verified 06/05/20 20:00 [From Compazine] comapazine Allergy Rash Uncoded 06/05/20 20:00 Home Meds: Home Meds Escitalopram [Lexapro] 20 mg PO DAILY 12/09/17 [History] Aspirin [Halfprin] 81 mg PO DAILY 02/04/19 [History] ALPRAZolam [Alprazolam] 0.5 g PO TID PRN 02/06/19 [History] traZODone HCl [Trazodone HCl] 100 mg PO BEDTIME 06/05/20 [History] Past Medical History HEENT History: Reports: Impaired Vision Cardiovascular History: Reports: High Cholesterol Gastrointestinal History: Reports: Gastritis Other Gastrointestinal History: small intestine tumor Genitourinary History: Reports: UTI, Recurrent 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 Dermatologic History: Reports: None - Infectious Disease History Infectious Disease History: Reports: Measles - Past Surgical History GI Surgical History: Reports: Cholecystectomy, Small Bowel Female Surgical History: Reports: Section, Hysterectomy Social & Family History - Family History Family Medical History: Noncontributory - Tobacco Use Smoking Status *Q: Never Smoker Second Hand Smoke Exposure: No - Caffeine Use Caffeine Use: Reports: None - Recreational Drug Use Recreational Drug Use: No - Living Situation & Occupation Living situation: Reports: with Family Occupation: Employed Review of Systems - Review of Systems Review Of Systems: Comprehensive ROS is negative, except as noted in HPI. ED EXAM, GENERAL - Physical Exam Exam: See Below Exam Limited By: No Limitations General Appearance: Alert, WD/WN, No Apparent Distress Eye Exam: Bilateral Eye: EOMI, Normal Inspection Ears: Normal External Exam, Hearing Grossly Normal Nose: Normal Inspection Throat/Mouth: Normal Inspection, Normal Voice, No Airway Compromise Head: Atraumatic, Normocephalic Neck: Normal Inspection, Supple, Non-Tender, Full Range of Motion Respiratory/Chest: No Respiratory Distress, Lungs Clear, Normal Breath Sounds, No Accessory Muscle Use, Chest Non-Tender Cardiovascular: Normal Peripheral Pulses, Regular Rate, Rhythm, No Edema, No Gallop, No JVD, No Murmur, No Rub Peripheral Pulses: 2+: Radial (L), Radial (R), Dorsalis Pedis (L) GI/Abdominal: Normal Bowel Sounds, Soft, Non-Tender (Female) Exam: Deferred Rectal (Female) Exam: Deferred Back Exam: Normal Inspection, Full Range of Motion, NT Extremities: Normal Inspection, Non-Tender, No Pedal Edema, Normal Capillary Refill, Joint Swelling (minimal left foot/left ankle), Leg Pain (left foot, up the left leg), Limited Range of Motion (left ankle/foot) Neurological: Alert, Oriented, CN II-XII Intact, Normal Cognition, Normal Reflexes, No Motor/Sensory Deficits Psychiatric: Normal Affect, Normal Mood Skin Exam: Warm, Dry, Intact, Normal Color, No Rash Lymphatic: No Adenopathy Course - Vital Signs Last Recorded V/S: Last Vital Signs Temp 96.7 F L 06/05/20 19:48 Pulse 80 06/05/20 19:48 Resp 18 06/05/20 19:48 BP 117/77 06/05/20 19:48 Pulse Ox 97 06/05/20 19:48 - Radiology Interpretation Free Text/Narrative:: Left foot xray: PROCEDURE INFORMATION: Exam: XR Left Foot Complete Exam date and time: 06/05/2020 8:07 PM Age: 49 years old Clinical indication: Other: No trauma; Additional info: Pain, past HX of hairline fxs TECHNIQUE: Imaging protocol: XR Left foot. Views: 3 or more views. COMPARISON: CR Foot 2V Lt 01/27/2020 11:49 AM FINDINGS: Bones/joints: No acute fracture. Soft tissues: Unremarkable. IMPRESSION: No acute osseous process. Thank you for allowing us to participate in the care of your patient. Dictated and Authenticated by: Mannie Blair MD 06/05/2020 8:23 PM Central Time ([place] & [place]) See rad report Departure - Departure Time of Disposition: 20:27 Disposition: Home, Self-Care 01 Condition: Good Clinical Impression: Pain in left foot Sprain of left foot Qualifiers: Encounter type: initial encounter Qualified Code(s): S93.602A - Unspecified sprain of left foot, initial encounter - Discharge Information *PRESCRIPTION DRUG MONITORING PROGRAM REVIEWED*: No *COPY OF PRESCRIPTION DRUG MONITORING REPORT IN PATIENT CLARK: No Instructions: How to Use Cold Therapy, [id number], Foot Sprain, Muscle Strain, [id number], Elastic Bandage and RICE Therapy Forms: ED Department Discharge Additional Instructions: May use Tylenol and/or ibuprofen as directed for pain Elevate and ice the foot as tolerated Wear Jorge bandage to the left foot when up and around on it and active If no improvement follow-up with your primary care provider Sepsis Event Note (ED) - Evaluation Sepsis Screening Result: No Definite Risk - Focused Exam Vital Signs: Vital Signs Temp Pulse Resp BP Pulse Ox 06/05/20 19:48 96.7 F L 80 18 117/77 97
--- NOTE | 2020-06-05 20:23 | CR ---
PROCEDURE INFORMATION: Exam: XR Left Foot Complete Exam date and time: 06/05/2020 8:07 PM Age: 49 years old Clinical indication: Other: No trauma; Additional info: Pain, past HX of hairline fxs TECHNIQUE: Imaging protocol: XR Left foot. Views: 3 or more views. COMPARISON: CR Foot 2V Lt 01/27/2020 11:49 AM FINDINGS: Bones/joints: No acute fracture. Soft tissues: Unremarkable. IMPRESSION: No acute osseous process.
== END 2020-06-05 20:40 | disposition home or self-care (01) ==
LOC: DL.ED 19:37
DX: S93.602A Unspecified sprain of left foot, initial encounter (principal); F41.9 Anxiety disorder, unspecified; F32.9 Major depressive disorder, single episode, unspecified; Z88.1 Allergy status to other antibiotic agents; Z88.8 Allergy status to other drugs, medicaments and biological substances; Z79.82 Long term (current) use of aspirin; Z79.899 Other long term (current) drug therapy; X58.XXXA Exposure to other specified factors, initial encounter; Y92.89 Other specified places as the place of occurrence of the external cause; Y99.0 Civilian activity done for income or pay
CPT/HCPCS: 73630-LT; 99282; 99283-25

== ENCOUNTER 2020-06-27 15:03 | Emergency (ER) | payer OTHER ==
[2020-06-27 15:15] VITALS: BP 108/77; PULSE 76
[2020-06-27] MEDS ORDERED: Sodium Chloride 0.9% 10 ML Syringe FLUSH PRN (15:19)
[2020-06-27] MEDS ORDERED: Sodium Chloride 0.9% 1,000 ML IV ONE (15:20)
[2020-06-27] MEDS ORDERED: GI Cocktail Oral Solution 30 ML PO ONE (15:20)
[2020-06-27] MEDS ORDERED: Ondansetron 4 MG/2 ML SDV IV ONE (15:20)
--- NOTE | 2020-06-27 15:22 | EDM.PDOC ---
ED HPI GENERAL MEDICAL PROBLEM - General Chief Complaint: ENT Problem Stated Complaint: SICK ALL WEEK, LOST VOICE,DEHIDRATED, SICK,NASUES, Time Seen by Provider: 06/27/20 15:22 Source of Information: Reports: Patient, Old Records, RN, RN Notes Reviewed History Limitations: Reports: No Limitations - History of Present Illness INITIAL COMMENTS - FREE TEXT/NARRATIVE: Pt presents to ER from home by POV with c/o one weeks duration of sore throat, dry cough, nausea with a couple episodes of emesis. Denies headache, chest pain, or shortness of breath, fever or chills, diarrhea, or urinary symptoms. Denies exposure to COVID. Pt feels dehydrated. Onset: Gradual Duration: Day(s): Location: Reports: Chest, Other (Throat) Quality: Reports: Ache Severity: Moderate Improves with: Reports: None Worsens with: Reports: Other (Swallowing) Associated Symptoms: Reports: No Other Symptoms - Related Data Allergies Allergy/AdvReac Type Severity Reaction Status Date / Time levofloxacin Allergy Vomiting Verified 06/27/20 15:15 prochlorperazine Allergy Rash Verified 06/27/20 15:15 [From Compazine] comapazine Allergy Rash Uncoded 06/27/20 15:15 Home Meds: Home Meds Escitalopram [Lexapro] 20 mg PO DAILY 12/09/17 [History] Aspirin [Halfprin] 81 mg PO DAILY 02/04/19 [History] ALPRAZolam [Alprazolam] 0.5 g PO TID PRN 02/06/19 [History] traZODone HCl [Trazodone HCl] 100 mg PO BEDTIME 06/05/20 [History] Past Medical History HEENT History: Reports: Impaired Vision Cardiovascular History: Reports: High Cholesterol Gastrointestinal History: Reports: Gastritis Other Gastrointestinal History: small intestine tumor Genitourinary History: Reports: UTI, Recurrent 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 Dermatologic History: Reports: None - Infectious Disease History Infectious Disease History: Reports: Measles - Past Surgical History GI Surgical History: Reports: Cholecystectomy, Small Bowel Female Surgical History: Reports: Section, Hysterectomy Social & Family History - Family History Family Medical History: Noncontributory - Caffeine Use Caffeine Use: Reports: None - Living Situation & Occupation Living situation: Reports: with Family Occupation: Employed ED ROS ENT - Review of Systems Review Of Systems: Comprehensive ROS is negative, except as noted in HPI. ED EXAM, ENT - Physical Exam Exam: See Below Exam Limited By: No Limitations General Appearance: Alert, WD/WN, No Apparent Distress, Other (Non-toxic appearing) Eye Exam: Bilateral Eye: Normal Inspection Nose: Normal Inspection, Normal Mucousa, No Blood Mouth/Throat: Normal Gums, Normal Lips, Normal Teeth, Dry Mucous Membrane, Pharyngeal Erythema. No: Tonsillar Exudates Head: Atraumatic, Normocephalic Neck: Supple, Full Range of Motion, Other ([place]oddy mild cervical lymphadenopathy) Respiratory/Chest: No Respiratory Distress, No Accessory Muscle Use, Chest Non- Tender, Crackles (mild), Other (Dry cough). No: Rales, Rhonchi, Wheezing, Stridor Cardiovascular: Normal Peripheral Pulses, Regular Rate, Rhythm, No Edema GI/Abdominal: Normal Bowel Sounds, Soft, Non-Tender. No: No Distention Extremities: Normal Inspection Neurological: Alert, Oriented, Normal Cognition, Normal Gait, No Motor/Sensory Deficits Psychiatric: Normal Mood Skin: Warm, Dry, Intact, Normal Color, No Rash Course - Vital Signs Last Recorded V/S: Last Vital Signs Temp 97.6 F 06/27/20 15:13 Pulse 76 06/27/20 15:13 Resp 16 06/27/20 15:13 BP 108/77 06/27/20 15:13 Pulse Ox 95 06/27/20 15:13 - Orders/Labs/Meds Orders: Active Orders 24 hr Category Date Time Status Peripheral IV Care [RC] . DIRECTED Care 06/27/20 15:20 Active CULTURE STREP A CONFIRMATION [RM] Stat Lab 06/27/20 15:17 Results CULTURE URINE [RM] Stat Lab 06/27/20 16:20 Received STREP SCRN A RAPID W CULT CONF [RM] Stat Lab 06/27/20 15:17 Results UA W/MICROSCOPIC [URIN] Stat Lab 06/27/20 16:20 Results Sodium Chloride 0.9% [Saline Flush] Med 06/27/20 15:19 Active 10 ml FLUSH ASDIRECTED PRN Peripheral IV Insertion Adult [OM.PC] Stat Oth 06/27/20 15:19 Ordered Medication Orders Sodium Chloride (Saline Flush) 10 ml FLUSH ASDIRECTED PRN PRN Reason: Keep Vein Open Last Admin: 06/27/20 15:35 Dose: 10 ml Documented by: CODY Labs: Laboratory Tests 06/27/20 06/27/20 06/27/20 Range/Units 15:28 15:28 16:20 WBC 8.0 (5.0-10.0) 10^3/uL RBC 4.66 (4.2-5.4) 10^6/uL Hgb 14.1 (12.0-16.0) g/dL Hct 42.6 (37.0-47.0) % MCV 91.4 (80-100) fL MCH 30.3 (27.0-34.0) pg MCHC 33.1 (33.0-35.0) g/dL Plt Count 231 (150-450) 10^3/uL Neut % (Auto) 64.9 (42.2-75.2) % Lymph % (Auto) 26.0 (20.5-50.1) % Dickenson % (Auto) 7.5 (2-8) % Eos % (Auto) 1.1 (1.0-3.0) % Baso % (Auto) 0.5 (0.0-1.0) % Sodium 143 (136-145) mmol/L Potassium 3.7 (3.5-5.1) mmol/L Chloride 105 (98-107) mmol/L Carbon Dioxide 33 H (21-32) mmol/L Anion Gap 8.7 (7-13) mEq/L BUN 10 (7-18) mg/dL Creatinine 0.98 (0.55-1.02) mg/dL Est Cr Clr Drug Dosing 59.96 mL/min Estimated GFR (MDRD) > 60 BUN/Creatinine Ratio 10.2 (No establ ref range) Glucose 72 L (74-99) mg/dL Calcium 9.2 (8.5-10.1) mg/dL Total Bilirubin 0.3 (0.2-1.0) mg/dL AST 26 (15-37) U/L ALT 31 (14-59) U/L Alkaline Phosphatase 126 H (46-116) U/L Total Protein 7.8 (6.4-8.2) g/dL Albumin 4.0 (3.4-5.0) g/dL Globulin 3.8 Albumin/Globulin Ratio 1.1 Urine Color Cancelled Urine Appearance Cancelled Urine pH Cancelled Ur Specific [place] Cancelled Urine Protein Cancelled Urine Glucose (UA) Cancelled Urine Ketones Cancelled Urine Occult Blood Cancelled Urine Nitrite Cancelled Urine Bilirubin Cancelled Urine Urobilinogen Cancelled Ur Leukocyte Esterase Cancelled U Hyaline Cast (Auto) Cancelled Urine RBC Cancelled Urine WBC Cancelled Ur Epithelial Cells Cancelled Calcium Phosphate Cryst Cancelled Calcium Oxalate Crystal Cancelled Uric Acid Crystals Cancelled Triple Phos Crystals Cancelled Other Crystals Cancelled Amorphous Sediment Cancelled Urine Bacteria Cancelled Hyaline Casts Cancelled Granular Casts Cancelled Granular Casts (Auto) Cancelled Fine Granular Casts Cancelled Coarse Granular Casts Cancelled Urine Mucus Cancelled Urine Other Cancelled Urine Trichomonas Cancelled Urine Yeast Cancelled Urinalysis Comment Cancelled 06/27/20 Range/Units 16:20 WBC (5.0-10.0) 10^3/uL RBC (4.2-5.4) 10^6/uL Hgb (12.0-16.0) g/dL Hct (37.0-47.0) % MCV (80-100) fL MCH (27.0-34.0) pg MCHC (33.0-35.0) g/dL Plt Count (150-450) 10^3/uL Neut % (Auto) (42.2-75.2) % Lymph % (Auto) (20.5-50.1) % Dickenson % (Auto) (2-8) % Eos % (Auto) (1.0-3.0) % Baso % (Auto) (0.0-1.0) % Sodium (136-145) mmol/L Potassium (3.5-5.1) mmol/L Chloride (98-107) mmol/L Carbon Dioxide (21-32) mmol/L Anion Gap (7-13) mEq/L BUN (7-18) mg/dL Creatinine (0.55-1.02) mg/dL Est Cr Clr Drug Dosing mL/min Estimated GFR (MDRD) BUN/Creatinine Ratio (No establ ref range) Glucose (74-99) mg/dL Calcium (8.5-10.1) mg/dL Total Bilirubin (0.2-1.0) mg/dL AST (15-37) U/L ALT (14-59) U/L Alkaline Phosphatase (46-116) U/L Total Protein (6.4-8.2) g/dL Albumin (3.4-5.0) g/dL Globulin Albumin/Globulin Ratio Urine Color Yellow Urine Appearance Clear Urine pH 5.5 Ur Specific [place] 1.015 Urine Protein Negative Urine Glucose (UA) Negative Urine Ketones Negative Urine Occult Blood Negative Urine Nitrite Negative Urine Bilirubin Negative Urine Urobilinogen 0.2 Ur Leukocyte Esterase Moderate H U Hyaline Cast (Auto) Urine RBC Urine WBC Ur Epithelial Cells Calcium Phosphate Cryst Calcium Oxalate Crystal Uric Acid Crystals Triple Phos Crystals Other Crystals Amorphous Sediment Urine Bacteria Hyaline Casts Granular Casts Granular Casts (Auto) Fine Granular Casts Coarse Granular Casts Urine Mucus Urine Other Urine Trichomonas Urine Yeast Urinalysis Comment Rapid Strep: negative Meds: Medications Generic Name Dose Route Start Last Admin Trade Name Freq PRN Reason Stop Dose Admin Sodium Chloride 10 ml 06/27/20 15:19 06/27/20 15:35 Saline Flush FLUSH 10 ml ASDIRECTED PRN Administration Keep Vein Open Discontinued Medications Generic Name Dose Route Start Last Admin Trade Name Freq PRN Reason Stop Dose Admin Al Hydroxide/Mg Hydroxide 30 ml 06/27/20 15:20 06/27/20 15:36 Gi Cocktail PO 06/27/20 15:21 30 ml ONETIME ONE Administration Benzonatate 200 mg 06/27/20 16:30 Tessalon Perles PO 06/27/20 16:31 ONETIME ONE Sodium Chloride 1,000 mls @ 999 mls/hr 06/27/20 15:20 06/27/20 15:34 Normal Saline IV 06/27/20 16:20 999 mls/hr .BOLUS ONE Administration Ondansetron HCl 4 mg 06/27/20 15:20 06/27/20 15:34 Zofran IV 06/27/20 15:21 4 mg ONETIME ONE Administration Ondansetron HCl 4 mg 06/27/20 16:30 Zofran Odt PO 06/27/20 16:31 ONETIME ONE Prednisone 40 mg 06/27/20 16:30 Prednisone PO 06/27/20 16:31 ONETIME ONE - Radiology Interpretation Free Text/Narrative:: [facility] [place] [facility] Final Radiology Report Call: [phone] assistance Online chat: [email or web address] Name: CORTES RUCKER Age: 49Years F Date: 06/27/2020 SSN: -- : [id number] Study: CR CHEST 2V Requesting Physician: TRENTON ERNST Images: 2 Addl Studies: Provided Clinical History: cough Contrast: Contrast Medium: Contrast Amount: Contrast Method: CONFIDENTIALITY STATEMENT This report is intended only for use by the referring physician, and only in accordance with law. If you received this in error, call [phone]. Page 1 of 1 PROCEDURE INFORMATION: Exam: XR Chest, 2 Views Exam date and time: 06/27/2020 4:05 PM Age: 49 years old Clinical indication: Cough TECHNIQUE: Imaging protocol: XR of the chest Views: 2 views. COMPARISON: CR Chest 1V Frontal 05/12/2020 7:53 PM FINDINGS: Lungs: Atelectasis and/or early infiltrate noted within the lung bases, greater on the left. Pleural space: Unremarkable. No pleural effusion. No pneumothorax. Heart/Mediastinum: Unremarkable. No cardiomegaly. Bones/joints: Unremarkable. IMPRESSION: Atelectasis and/or early infiltrate noted within the lung bases, greater on the left. Thank you for allowing us to participate in the care of your patient. Dictated and Authenticated by: Selvin Jameson DO 06/27/2020 4:17 PM Central Time ([place] & [place]) Departure - Departure Time of Disposition: 16:34 Disposition: Home, Self-Care 01 Condition: Good Clinical Impression: Pharyngitis with viral syndrome, Viral URI with cough, Dehydration - Discharge Information *PRESCRIPTION DRUG MONITORING PROGRAM REVIEWED*: Not Applicable *COPY OF PRESCRIPTION DRUG MONITORING REPORT IN PATIENT CLARK: Not Applicable Instructions: Pharyngitis, [id number], Viral Respiratory Infection, [id number], Dehydration, Adult, [id number] Forms: ED Department Discharge Additional Instructions: Rx: Prednisone 20mg Rx: Tessalon Perles 200mg Rx: Zofran 4mg Frequent saltwater gargles until sore throat improves. Drink plenty of water. Follow up in clinic if not improving in 3 to 4 days. Sepsis Event Note (ED) - Evaluation Sepsis Screening Result: No Definite Risk - Focused Exam Vital Signs: Vital Signs Temp Pulse Resp BP Pulse Ox 06/27/20 15:13 97.6 F 76 16 108/77 95 - My Orders Last 24 Hours: My Active Orders 06/27/20 15:17 CULTURE STREP A CONFIRMATION [RM] Stat STREP SCRN A RAPID W CULT CONF [RM] Stat 06/27/20 15:19 Sodium Chloride 0.9% [Saline Flush] 10 ml FLUSH ASDIRECTED PRN Peripheral IV Insertion Adult [OM.PC] Stat 06/27/20 15:20 Peripheral IV Care [RC] . DIRECTED 06/27/20 16:20 CULTURE URINE [RM] Stat UA W/MICROSCOPIC [URIN] Stat - Assessment/Plan Last 24 Hours: My Active Orders 06/27/20 15:17 CULTURE STREP A CONFIRMATION [RM] Stat STREP SCRN A RAPID W CULT CONF [RM] Stat 06/27/20 15:19 Sodium Chloride 0.9% [Saline Flush] 10 ml FLUSH ASDIRECTED PRN Peripheral IV Insertion Adult [OM.PC] Stat 06/27/20 15:20 Peripheral IV Care [RC] . DIRECTED 06/27/20 16:20 CULTURE URINE [RM] Stat UA W/MICROSCOPIC [URIN] Stat
[2020-06-27 15:59] LABS: ANION GAP 8.7 mEq/L (7-13); CHLORIDE,CL 105 mmol/L (98-107); SODIUM,NA 143 mmol/L (136-145)
--- NOTE | 2020-06-27 16:17 | CR ---
PROCEDURE INFORMATION: Exam: XR Chest, 2 Views Exam date and time: 06/27/2020 4:05 PM Age: 49 years old Clinical indication: Cough TECHNIQUE: Imaging protocol: XR of the chest Views: 2 views. COMPARISON: CR Chest 1V Frontal 05/12/2020 7:53 PM FINDINGS: Lungs: Atelectasis and/or early infiltrate noted within the lung bases, greater on the left. Pleural space: Unremarkable. No pleural effusion. No pneumothorax. Heart/Mediastinum: Unremarkable. No cardiomegaly. Bones/joints: Unremarkable. IMPRESSION: Atelectasis and/or early infiltrate noted within the lung bases, greater on the left.
[2020-06-27] MEDS ORDERED: predniSONE 20 MG Tab PO ONE (16:30)
[2020-06-27] MEDS ORDERED: Ondansetron 4 MG Tab.DIS PO ONE (16:30)
[2020-06-27] MEDS ORDERED: Benzonatate 100 MG Cap PO ONE (16:30)
== END 2020-06-27 16:46 | disposition home or self-care (01) ==
LOC: DL.ED 15:03
DX: E86.0 Dehydration (principal); J06.9 Acute upper respiratory infection, unspecified; J02.9 Acute pharyngitis, unspecified; B34.9 Viral infection, unspecified; M19.90 Unspecified osteoarthritis, unspecified site; F41.9 Anxiety disorder, unspecified; F32.9 Major depressive disorder, single episode, unspecified; R59.0 Localized enlarged lymph nodes; Z98.890 Other specified postprocedural states; Z88.8 Allergy status to other drugs, medicaments and biological substances; Z79.82 Long term (current) use of aspirin; Z79.899 Other long term (current) drug therapy
CPT/HCPCS: 36415; 71046; 80053; 81001; 85025; 87081; 87086; 87430; 96361; 96374; 99284; A9270; J2405; J7030; J7512

== ENCOUNTER 2020-12-17 17:53 | Emergency (ER) | payer OTHER ==
[2020-12-17 18:00] VITALS: BP 116/84; PULSE 86
--- NOTE | 2020-12-17 18:20 | EDM.PDOC ---
ED HPI GENERAL MEDICAL PROBLEM - General Stated Complaint: FELL ON ICE HIT HEAD Time Seen by Provider: 12/17/20 18:00 Source of Information: Reports: Patient, RN, RN Notes Reviewed History Limitations: Reports: No Limitations - History of Present Illness INITIAL COMMENTS - FREE TEXT/NARRATIVE: Patient presents to the ED via personal vehicle with complaints of pain to the back of her head following a fall from ground level. The patient states the fall occurred less than thirty minutes ago. She states she slipped on ice and fell backwards with her head striking the ground first. She denies LOC; she attest to taking ASA 81mg daily. She denies vision changes, vomiting, or changes in mentation. She does attest to headache, nausea, and body aches. She notes her left wrist hurts but states "...my whole body hurts." She has not taken any medications since the fall. Headache Pain Score (Numeric/FACES): 9 - Related Data Allergies Allergy/AdvReac Type Severity Reaction Status Date / Time levofloxacin Allergy Vomiting Verified 06/27/20 15:15 prochlorperazine Allergy Rash Verified 06/27/20 15:15 [From Compazine] comapazine Allergy Rash Uncoded 06/27/20 15:15 Home Meds: Home Meds Escitalopram [Lexapro] 20 mg PO DAILY 12/09/17 [History] Aspirin [Halfprin] 81 mg PO DAILY 02/04/19 [History] ALPRAZolam [Alprazolam] 0.5 g PO TID PRN 02/06/19 [History] traZODone HCl [Trazodone HCl] 100 mg PO BEDTIME 06/05/20 [History] Past Medical History HEENT History: Reports: Impaired Vision Cardiovascular History: Reports: High Cholesterol Respiratory History: Reports: None Gastrointestinal History: Reports: Gastritis Other Gastrointestinal History: small intestine tumor Genitourinary History: Reports: UTI, Recurrent 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 Dermatologic History: Reports: None - Infectious Disease History Infectious Disease History: Reports: Measles - Past Surgical History Head Surgeries/Procedures: Reports: None GI Surgical History: Reports: Cholecystectomy, Small Bowel Other GI Surgeries/Procedures: small intestine tumor removal 10/23/2016 Female Surgical History: Reports: Section, Hysterectomy Social & Family History - Family History Family Medical History: No Pertinent Family History - Tobacco Use Tobacco Use Status *Q: Never Tobacco User Second Hand Smoke Exposure: No - Caffeine Use Caffeine Use: Reports: None - Recreational Drug Use Recreational Drug Use: No - Living Situation & Occupation Living situation: Reports: with Family Occupation: Employed ED ROS GENERAL - Review of Systems Review Of Systems: Comprehensive ROS is negative, except as noted in HPI. ED EXAM, HEAD INJURY - Physical Exam Exam: See Below Exam Limited By: No Limitations General Appearance: Alert, No Apparent Distress Head: Atraumatic, Normocephalic, Scalp Tenderness (To occiput). No: Scalp Lacerations, Scalp Swelling, Scalp Abrasions, Scalp Ecchymosis, Scalp Hematoma, Active Bleeding, Wood's Sign, Facial Tenderness, Raccoon Eyes Nexus Criteria: No: Posterior, Midline Cervical Tenderness, Evidence of Intoxication, Altered Level of Consciousness, Focal Neurological Deficit, Painful Distraction Injuries Eyes: Bilateral Eye: EOMI, Normal Inspection, PERRL (3mm) Ears: Normal External Exam, Normal Canal, Hearing Grossly Normal, Normal TMs Nose: Normal Inspection, Normal Mucousa, No Blood Throat/Mouth: Normal Inspection, Normal Voice, No Airway Compromise Neck: Non-Tender, Full Range of Motion, Normal Alignment, Normal Inspection. No: Muscle Spasm, Paraspinous Muscle Tender, Spinous Processes Tender Respiratory: No Respiratory Distress, Lungs Clear, Normal Breath Sounds, No Accessory Muscle Use, Chest Non-Tender Cardiovascular: Normal Peripheral Pulses, Regular Rate, Rhythm, No Edema, No Gallop, No JVD, No Murmur, No Rub GI/Abdominal Exam: Normal Bowel Sounds, Soft, Non-Tender, No Distention, No Mass, Pelvis Stable (Female) Exam: Deferred Rectal (Female) Exam: Deferred Back Exam: Normal Inspection, Full Range of Motion. No: CVA Tenderness (L), CVA Tenderness (R), Muscle Spasm, Paraspinal Tenderness, Vertebral Tenderness Extremities: Normal Inspection, Normal Range of Motion, Non-Tender, No Pedal Edema, Normal Capillary Refill Neurologic: No Motor/Sensory Deficits, Alert, Normal Mood/Affect, Oriented x 3 Skin: Normal Color, Warm/Dry. No: Mottled, Pallor, Petechiae, Rash - Austen Coma Score Best Eye Response (Austen): (4) Open Spontaneously Best Verbal Response (Austen): (5) Oriented Best Motor Response (Austen): (6) Obeys Commands Course - Vital Signs Last Recorded V/S: Last Vital Signs Temp 97 F 12/17/20 17:55 Pulse 86 12/17/20 17:55 Resp 18 12/17/20 17:55 BP 116/84 12/17/20 17:55 Pulse Ox 96 12/17/20 17:55 - Orders/Labs/Meds Meds: Medications Discontinued Medications Generic Name Dose Route Start Last Admin Trade Name Freq PRN Reason Stop Dose Admin Tramadol HCl 50 mg 12/17/20 19:02 12/17/20 19:10 Ultram PO 12/17/20 19:03 50 mg ONETIME ONE Administration - Radiology Interpretation Free Text/Narrative:: [facility] Final Radiology Report Call: [phone] assistance Online chat: [email or web address] Name: CORTES RUCKER Age: 50Years F Date: 12/17/2020 SSN: -- : 1970 Study: CT HEAD WO CONT Requesting Physician: Jackie Diaz Images: 145 Addl Studies: Provided Clinical History: head injury Contrast: Without Contrast Medium: Contrast Amount: Contrast Method: CONFIDENTIALITY STATEMENT This report is intended only for use by the referring physician, and only in accordance with law. If you received this in error, call [phone]. Page 1 of 1 PROCEDURE INFORMATION: Exam: CT Head Without Contrast Exam date and time: 12/17/2020 6:14 PM Age: 50 years old Clinical indication: Other: Fell--hit back of head; Additional info: Head injury TECHNIQUE: Imaging protocol: Computed tomography of the head without contrast. Radiation optimization: All CT scans at this facility use at least one of these dose optimization techniques: automated exposure control; mA and/or kV adjustment per patient size (includes targeted exams where dose is matched to clinical indication); or iterative reconstruction. COMPARISON: CT Head wo Cont 01/23/2019 7:34 PM FINDINGS: Brain: Normal. No hemorrhage. Unremarkable white matter. No mass effect. Cerebral ventricles: No ventriculomegaly. Bones/joints: Unremarkable. No acute fracture. Paranasal sinuses: Visualized sinuses are unremarkable. No fluid levels. Mastoid air cells: Visualized mastoid air cells are well aerated. Soft tissues: Unremarkable. IMPRESSION: No acute intracranial abnormality. Thank you for allowing us to participate in the care of your patient. Dictated and Authenticated by: Jose Keita MD 12/17/2020 6:37 PM Central Time ([place] & [place]) - Re-Assessments/Exams Free Text/Narrative Re-Assessment/Exam: 12/17/20 CT unremarkable for acute processes. Discussed results with patient. Patient continues to deny and focal point of pain and states she is experiencing aches "everywhere." Patient states she lives with her and daughter. Discussed red flag signs and symptoms of concussion syndrome which would warrant reevaluation. Discussed supportive cares for muscle aches and headache. Patient verbalized understanding and agreement with the plan of care. Departure - Departure Time of Disposition: 19:00 Disposition: Home, Self-Care 01 Condition: Good Clinical Impression: Concussion with no loss of consciousness - Discharge Information *PRESCRIPTION DRUG MONITORING PROGRAM REVIEWED*: Not Applicable *COPY OF PRESCRIPTION DRUG MONITORING REPORT IN PATIENT CLARK: Not Applicable Instructions: Concussion, Adult, [id number] Forms: ED Department Discharge Additional Instructions: Rx: Ultram 1.) Follow up with your primary care provider in 3-5 days, or sooner as warranted. 2.) You may take ibuprofen (Advil/Motrin) 400mg every six hours, as pain persists. You may also take acetaminophen (Tylenol) 650mg every six hours, as pain persists. You may stagger these medications so you are taking a dose every three hours. 3.) Alternate heat/ice to areas of soreness. Sepsis Event Note (ED) - Evaluation Sepsis Screening Result: No Definite Risk - Focused Exam Vital Signs: Vital Signs Temp Pulse Resp BP Pulse Ox 12/17/20 17:55 97 F 86 18 116/84 96
--- NOTE | 2020-12-17 18:37 | CT ---
PROCEDURE INFORMATION: Exam: CT Head Without Contrast Exam date and time: 12/17/2020 6:14 PM Age: 50 years old Clinical indication: Other: Fell--hit back of head; Additional info: Head injury TECHNIQUE: Imaging protocol: Computed tomography of the head without contrast. Radiation optimization: All CT scans at this facility use at least one of these dose optimization techniques: automated exposure control; mA and/or kV adjustment per patient size (includes targeted exams where dose is matched to clinical indication); or iterative reconstruction. COMPARISON: CT Head wo Cont 01/23/2019 7:34 PM FINDINGS: Brain: Normal. No hemorrhage. Unremarkable white matter. No mass effect. Cerebral ventricles: No ventriculomegaly. Bones/joints: Unremarkable. No acute fracture. Paranasal sinuses: Visualized sinuses are unremarkable. No fluid levels. Mastoid air cells: Visualized mastoid air cells are well aerated. Soft tissues: Unremarkable. IMPRESSION: No acute intracranial abnormality.
[2020-12-17] MEDS ORDERED: traMADol 50 MG Tab PO ONE (19:02)
== END 2020-12-17 19:12 | disposition home or self-care (01) ==
LOC: DL.ED 17:53
DX: S06.0X0A Concussion without loss of consciousness, initial encounter (principal); M19.90 Unspecified osteoarthritis, unspecified site; Z88.1 Allergy status to other antibiotic agents; Z88.8 Allergy status to other drugs, medicaments and biological substances; Z79.82 Long term (current) use of aspirin; Z79.899 Other long term (current) drug therapy; W00.0XXA Fall on same level due to ice and snow, initial encounter
CPT/HCPCS: 70450; 99283; A9270

== ENCOUNTER 2021-02-17 01:38 | Emergency (ER) | payer OTHER ==
[2021-02-17 01:54] VITALS: BP 127/80; PULSE 79
--- NOTE | 2021-02-17 02:32 | EDM.PDOC ---
ED HPI GENERAL MEDICAL PROBLEM - General Chief Complaint: Skin Complaint Stated Complaint: GETTING OVER SHINGLES LEFT SIDE PAIN Time Seen by Provider: 02/17/21 01:55 Source of Information: Reports: Patient, RN History Limitations: Reports: No Limitations - History of Present Illness INITIAL COMMENTS - FREE TEXT/NARRATIVE: ED with c/o pain from shingles. Dx shingles on 02/03, prescribed valcyclovir and gabapentin. Completed Valcyclovir.Did not take Gabapentin today. Woke at 0100 with pain to right flank radiating to naval. Ibuprofen last yesterday. No fever or chills. No nausea or vomiting. Lower Back Pain Score (Numeric/FACES): 10 - Related Data Allergies Allergy/AdvReac Type Severity Reaction Status Date / Time levofloxacin Allergy Vomiting Verified 06/27/20 15:15 prochlorperazine Allergy Rash Verified 06/27/20 15:15 [From Compazine] comapazine Allergy Rash Uncoded 06/27/20 15:15 Home Meds: Home Meds Escitalopram [Lexapro] 20 mg PO DAILY 12/09/17 [History] Aspirin [Halfprin] 81 mg PO DAILY 02/04/19 [History] ALPRAZolam [Alprazolam] 0.5 g PO TID PRN 02/06/19 [History] traZODone HCl [Trazodone HCl] 100 mg PO BEDTIME 06/05/20 [History] Past Medical History HEENT History: Reports: Impaired Vision Cardiovascular History: Reports: High Cholesterol Respiratory History: Reports: None Gastrointestinal History: Reports: Gastritis Other Gastrointestinal History: small intestine tumor Genitourinary History: Reports: UTI, Recurrent 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 Dermatologic History: Reports: None - Infectious Disease History Infectious Disease History: Reports: Measles, Shingles - Past Surgical History Head Surgeries/Procedures: Reports: None GI Surgical History: Reports: Cholecystectomy, Small Bowel Other GI Surgeries/Procedures: small intestine tumor removal 10/23/2016 Female Surgical History: Reports: Section, Hysterectomy Social & Family History - Family History Family Medical History: No Pertinent Family History - Tobacco Use Tobacco Use Status *Q: Never Tobacco User Second Hand Smoke Exposure: No - Caffeine Use Caffeine Use: Reports: None - Recreational Drug Use Recreational Drug Use: No - Living Situation & Occupation Living situation: Reports: with Family Occupation: Employed ED ROS GENERAL - Review of Systems Review Of Systems: Comprehensive ROS is negative, except as noted in HPI. ED EXAM, SKIN/RASH Exam: See Below Exam Limited By: No Limitations General Appearance: Alert, No Apparent Distress, Anxious Eye Exam: Bilateral Eye: EOMI Ears: Normal External Exam Nose: Normal Inspection Throat/Mouth: Normal Inspection Head: Atraumatic, Normocephalic Neck: Normal Inspection Respiratory/Chest: No Respiratory Distress, Normal Breath Sounds Cardiovascular: Normal Peripheral Pulses, Regular Rate, Rhythm GI/Abdominal: Normal Bowel Sounds Extremities: Normal Inspection Neurological: Alert, Oriented Psychiatric: Anxious Skin: Zoster-Like Rash (right lower flank to mid abdomen, dry scaley, no open lesions) Associated features: Tenderness, Scaling Course - Vital Signs Last Recorded V/S: Last Vital Signs Temp 97.4 F 02/17/21 01:48 Pulse 79 02/17/21 01:48 Resp 18 02/17/21 01:48 BP 127/80 02/17/21 01:48 Pulse Ox 97 02/17/21 01:48 Departure - Departure Time of Disposition: 02:29 Disposition: Home, Self-Care 01 Condition: Good Clinical Impression: Shingles Qualifiers: Herpes zoster complications: disseminated zoster Qualified Code(s): B02.7 - Disseminated zoster - Discharge Information *PRESCRIPTION DRUG MONITORING PROGRAM REVIEWED*: No *COPY OF PRESCRIPTION DRUG MONITORING REPORT IN PATIENT CLARK: No Instructions: Shingles, [id number] Forms: ED Department Discharge Additional Instructions: alternate tylenol and ibuprofen every 4 hours as needed for discomfort gabapentin 100mg at bed time follow up with primary care regarding refills of gabapentin Sepsis Event Note (ED) - Evaluation Sepsis Screening Result: No Definite Risk - Focused Exam Vital Signs: Vital Signs Temp Pulse Resp BP Pulse Ox 02/17/21 01:48 97.4 F 79 18 127/80 97
== END 2021-02-17 02:35 | disposition home or self-care (01) ==
LOC: DL.ED 01:38
DX: B02.7 Disseminated zoster (principal); M19.90 Unspecified osteoarthritis, unspecified site; Z88.1 Allergy status to other antibiotic agents; Z88.8 Allergy status to other drugs, medicaments and biological substances; Z79.899 Other long term (current) drug therapy; Z79.82 Long term (current) use of aspirin
CPT/HCPCS: 99283

== ENCOUNTER 2021-05-04 05:57 | Day surgery (SDC) | payer OTHER ==
[~2021-05-04 05:57] MED LIST: Midazolam 1 MG/ML 2 ML SDV ONE; fentaNYL 100 MCG/2 ML SDV ONE
[2021-05-04] MEDS ORDERED: fentaNYL 100 MCG/2 ML SDV IV ONE ×4 (05:58→07:54)
[2021-05-04] MEDS ORDERED: Midazolam 1 MG/ML 2 ML SDV IV ONE ×7 (05:58→07:51)
[2021-05-04] MEDS ORDERED: Dextrose 5%-0.45% NaCl 1,000 ML IV SCH (06:00)
--- NOTE | 2021-05-04 09:01 | OR ---
DATE: 05/04/2021 PROCEDURE: Total colonoscopy. INSTRUMENT USED: PCF-H190DL Olympus video colonoscope. PREMEDICATIONS: Fentanyl 125 mcg intravenous, Versed 4 mg intravenous. Nasal O2 cannula. The procedure was done under pulse oximetry, BP recording, and hr representative. INDICATION: Screening colonoscopic examination is done for detection of any polypoid lesions and removal, endoscopic hemostasis therapy if needed. DESCRIPTION OF PROCEDURE: Initial rectal exam was unremarkable. Rigid anoscopy showed some pigmentation of the rectal mucosa. The scope was passed with ease up to the ileocecal area. Numerous scattered diverticula were noted in the distal left colon along with deformity. Pigmentation of the left colon noted, was consistent with melanosis coli. Photographs were taken of the cecum identified by landmarks of appendiceal orifice and double-bulged ileocecal folds. No bleeding was noted from any of the visualized areas at the commencement of the examination. The bowel preparation was found to be adequate, Houston scale 3 in right and transverse colon, 2 in left colon, total score 8. No stricture. No vascular ectasia. No large isolated ulcerations seen. No evidence of diffuse inflammatory bowel disease in the form of friability, contact bleeding, or ulcerations. No polyp or tumor mass identified. Probing the proximal sides of folds and flexures using adequate distention and clearing up the stool material, withdrawal of the scope was made, cecum to rectum time over 6 minutes. No bleeding was noted from any of the visualized areas at the completion of examination. IMPRESSION: 1. Melanosis coli. 2. Diverticulosis. The patient tolerated the procedure well. [facility] /[id number]
--- NOTE | 2021-05-04 10:03 | LETTER ---
05/04/2021 RE: YUKI THOMPSON : 1970 Leonides Albrecht MD [facility], [address] Albrecht: Ms. Yuki Thompson had colonoscopic examination this morning and she tolerated the procedure well. I herewith send a copy of the endoscopy note and photographs for your review. Thank you. Sincerely, [facility] /[id number]
[2021-05-04 11:51] VITALS: BP 118/60; PULSE 66
[2021-05-04] MEDS ORDERED: Sodium Chloride 0.9% 10 ML Syringe FLUSH PRN (23:59)
== END 2021-05-04 10:11 | disposition home or self-care (01) ==
LOC: DL.ENDO 05:57
PROVIDERS: ATTEND Internal Medicine Gastroenterology
DX: Z12.11 Encounter for screening for malignant neoplasm of colon (principal); K57.30 Diverticulosis of large intestine without perforation or abscess without bleeding; K63.89 Other specified diseases of intestine; Z98.890 Other specified postprocedural states; Z88.8 Allergy status to other drugs, medicaments and biological substances
CPT/HCPCS: 45378; J2250; J3010; J7042

== ENCOUNTER 2021-10-23 17:09 | Emergency (ER) | payer OTHER ==
[2021-10-23 18:28] LABS: CORONAVIRUS COVID-19 NAA POSITIVE (NEGATIVE)
[2021-10-23 18:47] VITALS: BP 114/79; PULSE 116
[2021-10-23] MEDS ORDERED: Ondansetron 4 MG Tab.DIS PO ONE (18:49)
[2021-10-23] MEDS ORDERED: Benzonatate 100 MG Cap PO ONE (18:50)
[2021-10-23] MEDS ORDERED: Dexamethasone 6 MG TABLET PO ONE (18:51)
[2021-10-23 20:02] LABS: ANION GAP 13.5 mEq/L (7-13); CHLORIDE,CL 99 mmol/L (98-107); SODIUM,NA 137 mmol/L (136-145)
[2021-10-23] MEDS ORDERED: Sodium Chloride 0.9% 500 ML IV ONE (20:57)
== END 2021-10-23 23:29 | disposition home or self-care (01) ==
LOC: DL.ED 17:09
DX: U07.1 COVID-19 (principal); E86.0 Dehydration; Z91.040 Latex allergy status; Z79.82 Long term (current) use of aspirin; Z79.899 Other long term (current) drug therapy; Z88.1 Allergy status to other antibiotic agents; Z88.8 Allergy status to other drugs, medicaments and biological substances
CPT/HCPCS: 0240U; 36415; 71045; 80053; 82150; 82728; 83605; 83690; 84484; 85025; 85379; 85610; 85730; 86140; 99284; A9270; J7030; J8540

== ENCOUNTER 2022-07-29 08:00 | Emergency (ER) | payer BC ==
[2022-07-29] MEDS ORDERED: Acetaminophen/HYDROcodone 325-10 MG Tab PO ONE (08:01)
== END 2022-07-29 19:13 | disposition home or self-care (01) ==
LOC: DL.ED 08:00
DX: G89.18 Other acute postprocedural pain (principal); M79.661 Pain in right lower leg
CPT/HCPCS: 93971; 99283; A9270

== ENCOUNTER 2022-08-26 08:27 | Emergency (ER) | payer BC ==
[2022-08-26 08:56] VITALS: BP 150/81; PULSE 95
[2022-08-26] MEDS ORDERED: Sodium Chloride 0.9% 1,000 ML IV ONE (09:06)
[2022-08-26] MEDS ORDERED: Sodium Chloride 0.9% 10 ML Syringe FLUSH PRN (09:06)
[2022-08-26 09:58] LABS: ANION GAP 10.8 mEq/L (7-13); CHLORIDE,CL 101 mmol/L (98-107); SODIUM,NA 136 mmol/L (136-145)
[2022-08-26 10:05] LABS: ESTIMATED GFR 86 mL/min (>=60)
== END 2022-08-26 11:02 | disposition home or self-care (01) ==
LOC: DL.ED 08:27
DX: R55 Syncope and collapse (principal); Z91.040 Latex allergy status; Z88.1 Allergy status to other antibiotic agents; Z88.8 Allergy status to other drugs, medicaments and biological substances; Z79.899 Other long term (current) drug therapy; Z79.82 Long term (current) use of aspirin; Z90.49 Acquired absence of other specified parts of digestive tract
CPT/HCPCS: 36415; 71045; 80053; 81001; 82947; 83735; 84484; 85025; 87086; 93005; 96360; 99284; J3490; J7030

== ENCOUNTER 2022-11-16 11:25 | Emergency (ER) | payer BC, OTHER ==
[2022-11-16] MEDS ORDERED: Sodium Chloride 0.9% 10 ML Syringe FLUSH PRN (12:37)
[2022-11-16 13:06] VITALS: BP 119/80; PULSE 86
[2022-11-16 13:35] LABS: ANION GAP 12.1 mEq/L (7-13)
== END 2022-11-16 14:58 | disposition home or self-care (01) ==
LOC: DL.ED 11:25
DX: N30.00 Acute cystitis without hematuria (principal); B37.31 Acute candidiasis of vulva and vagina; E11.649 Type 2 diabetes mellitus with hypoglycemia without coma; E78.00 Pure hypercholesterolemia, unspecified; Z86.16 Personal history of COVID-19; Z91.040 Latex allergy status; Z88.1 Allergy status to other antibiotic agents; Z88.8 Allergy status to other drugs, medicaments and biological substances; Z79.82 Long term (current) use of aspirin
CPT/HCPCS: 36415; 80053; 81001; 82947; 83605; 85025; 87086; 99284

== ENCOUNTER 2022-12-23 13:25 | Emergency (ER) | payer BC ==
[2022-12-23] MEDS ORDERED: Sodium Chloride 0.9% 10 ML Syringe FLUSH PRN (13:50)
[2022-12-23] MEDS ORDERED: Sodium Chloride 0.9% 1,000 ML IV ONE (13:51)
[2022-12-23] MEDS ORDERED: Ondansetron 4 MG/2 ML SDV IV ONE (13:51)
[2022-12-23 14:35] LABS: ANION GAP 15.1 mEq/L (7-13)
[2022-12-23 14:51] LABS: CORONAVIRUS COVID-19 NAA NEGATIVE (NEGATIVE); RESPIRATORY SYNCYTIAL VIR NAA NEGATIVE (NEGATIVE)
[2022-12-23 16:00] VITALS: BP 125/77; PULSE 82
== END 2022-12-23 15:56 | disposition home or self-care (01) ==
LOC: DL.ED 13:25
DX: R07.89 Other chest pain (principal); T45.1X5A Adverse effect of antineoplastic and immunosuppressive drugs, initial encounter; E86.0 Dehydration; M19.90 Unspecified osteoarthritis, unspecified site; Z91.040 Latex allergy status; Z88.1 Allergy status to other antibiotic agents; Z88.8 Allergy status to other drugs, medicaments and biological substances; Z79.82 Long term (current) use of aspirin; Z79.899 Other long term (current) drug therapy; Z20.822 Contact with and (suspected) exposure to COVID-19
CPT/HCPCS: 0241U; 36415; 71045; 80053; 81001; 82150; 83605; 83735; 84484; 85025; 87040; 87086; 93010; 96361; 96374; 99284; 99285-25; J2405; J7030

== ENCOUNTER 2023-02-24 21:35 | Emergency (ER) | payer BC | END 2023-02-24 22:25 | disposition left against medical advice (07) | LOC: DL.ED 21:35 | DX: Z53.21 Procedure and treatment not carried out due to patient leaving prior to being seen by health care provider (principal) ==

== ENCOUNTER 2023-02-25 10:49 | Emergency (ER) | payer BC ==
[2023-02-25 11:12] VITALS: BP 127/83; PULSE 83
[2023-02-25] MEDS ORDERED: Ondansetron 4 MG/2 ML SDV IV ONE ×2 (11:37→13:11)
[2023-02-25] MEDS ORDERED: HYDROmorphone 0.5 MG/0.5 ML Syringe IVPUSH ONE (11:37)
[2023-02-25] MEDS ORDERED: Sodium Chloride 0.9% 10 ML Syringe FLUSH PRN (11:37)
[2023-02-25] MEDS ORDERED: Sodium Chloride 0.9% 1,000 ML IV ONE (11:37)
[2023-02-25 11:54] LABS: EOSINOPHILS PERCENT AUTO 3.9 % (1.0-3.0); HEMATOCRIT 41.7 % (37.0-47.0); HEMOGLOBIN 13.7 g/dL (12.0-16.0); LYMPHOCYTES PERCENT AUTO 24.2 % (20.5-50.1); MEAN CORPUSCULAR HEMOGLOBIN 31.1 pg (27.0-34.0); MEAN CORPUSCULAR HGB CONC 32.9 g/dL (33.0-35.0); MEAN CORPUSCULAR VOLUME 94.8 fL (80-100); MONOCYTES PERCENT AUTO 6.9 % (2-8); PLATELET COUNT,PLT 215 10^3/uL (150-450); WHITE BLOOD CELL COUNT,WBC 5.4 10^3/uL (5.0-10.0)
[2023-02-25 12:15] LABS: A/G RATIO 1.1; ALBUMIN 3.6 g/dL (3.4-5.0); ANION GAP 11.1 mEq/L (7-13); BILIRUBIN TOTAL 0.3 mg/dL (0.2-1.0); BUN/CREATININE RATIO 18.1 (No establ ref range); CALCIUM 8.7 mg/dL (8.5-10.1); CREATININE 0.83 mg/dL (0.55-1.02); EST CRCL DRUG DOSING (CG) 68.47 mL/min; POTASSIUM,K 4.1 mmol/L (3.5-5.1)
[2023-02-25 12:21] LABS: INR 0.9 (0.9-1.2); PROTHROMBIN TIME 9.6 SEC (9.0-12.0); PTT,PARTIAL THROMBOPLSTIN TIME 25.8 SEC (22.0-34.0)
[2023-02-25] MEDS ORDERED: Iopamidol 755 Mg/ML 100 ML Bottle IVPUSH ONE (13:08)
[2023-02-25] MEDS ORDERED: HYDROmorphone 1 MG/ML Syringe IVPUSH ONE (13:11)
[2023-02-25] MEDS ORDERED: Take Home: Acetaminophen/oxyCODONE 325-5 MG, 5 Tab Pack PO ONE (15:15)
[2023-02-25] MEDS ORDERED: Take Home: Ondansetron 4 MG Tab.DIS, 5 Tab Pack PO ONE (15:15)
== END 2023-02-25 15:47 | disposition home or self-care (01) ==
LOC: DL.ED 10:49
DX: R10.11 Right upper quadrant pain (principal); R07.9 Chest pain, unspecified; Z86.16 Personal history of COVID-19; Z91.040 Latex allergy status; Z88.1 Allergy status to other antibiotic agents; Z88.8 Allergy status to other drugs, medicaments and biological substances; Z79.899 Other long term (current) drug therapy
CPT/HCPCS: 36415; 71260; 80053; 82150; 83690; 85025; 85610; 85730; 96361; 96374; 96375; 96376; 99284; 99285-25; A9270-GY; J1170; J2405; J3490; J7030; Q0162; Q9967

== ENCOUNTER 2023-06-01 11:04 | Emergency (ER) | payer BC ==
[2023-06-01] MEDS ORDERED: Sodium Chloride 0.9% 1,000 ML IV ONE (11:05)
[2023-06-01] MEDS ORDERED: Sodium Chloride 0.9% 10 ML Syringe FLUSH PRN (11:06)
[2023-06-01 11:35] LABS: BASOPHILS PERCENT AUTO 1.7 % (0.0-1.0); EOSINOPHILS PERCENT AUTO 1.8 % (1.0-3.0); HEMATOCRIT 44.7 % (37.0-47.0); HEMOGLOBIN 14.2 g/dL (12.0-16.0); LYMPHOCYTES PERCENT AUTO 18.4 % (20.5-50.1); MEAN CORPUSCULAR HEMOGLOBIN 30.1 pg (27.0-34.0); MEAN CORPUSCULAR HGB CONC 31.8 g/dL (33.0-35.0); MEAN CORPUSCULAR VOLUME 94.9 fL (80-100); MONOCYTES PERCENT AUTO 8.7 % (2-8); NEUTROPHILS PERCENT AUTO 69.4 % (42.2-75.2); PLATELET COUNT,PLT 238 10^3/uL (150-450); RED BLOOD CELL COUNT 4.71 10^6/uL (4.2-5.4); WHITE BLOOD CELL COUNT,WBC 7.6 10^3/uL (5.0-10.0)
[2023-06-01 11:55] LABS: ALBUMIN 4.1 g/dL (3.4-5.0); BILIRUBIN TOTAL 0.2 mg/dL (0.2-1.0); BUN/CREATININE RATIO 23.5 (No establ ref range); CALCIUM 9.3 mg/dL (8.5-10.1); CREATININE 0.81 mg/dL (0.55-1.02); EST CRCL DRUG DOSING (CG) 70.16 mL/min; MAGNESIUM 2.1 mg/dL (1.8-2.4); PROTEIN TOTAL,TP 8.1 g/dL (6.4-8.2)
[2023-06-01 11:58] LABS: INR 0.9 (0.9-1.2); PROTHROMBIN TIME 9.6 SEC (9.0-12.0); PTT,PARTIAL THROMBOPLSTIN TIME 24.2 SEC (22.0-34.0)
[2023-06-01 13:47] VITALS: BP 101/64; PULSE 88
== END 2023-06-01 13:39 | disposition home or self-care (01) ==
LOC: DL.ED 11:04
DX: E16.2 Hypoglycemia, unspecified (principal); M79.10 Myalgia, unspecified site; R11.0 Nausea; Z88.8 Allergy status to other drugs, medicaments and biological substances; Z88.1 Allergy status to other antibiotic agents; Z91.040 Latex allergy status; Z79.82 Long term (current) use of aspirin; Z85.89 Personal history of malignant neoplasm of other organs and systems
CPT/HCPCS: 36415; 80053; 82947; 83735; 85025; 85610; 85730; 93005; 96361; 96374; 99285-25; J3360; J3490; J7030

== ENCOUNTER 2023-09-26 23:52 | Emergency (ER) | payer BC ==
[2023-09-27 01:00] VITALS: BP 128/85; PULSE 72
[2023-09-27 01:22] LABS: HEMOGLOBIN 15.1 g/dL (12.0-16.0); MEAN CORPUSCULAR HEMOGLOBIN 29.7 pg (27.0-34.0); MEAN CORPUSCULAR HGB CONC 32.1 g/dL (33.0-35.0); MEAN CORPUSCULAR VOLUME 92.3 fL (80-100); PLATELET COUNT,PLT 328 10^3/uL (150-450); RED BLOOD CELL COUNT 5.09 10^6/uL (4.2-5.4); WHITE BLOOD CELL COUNT,WBC 8.8 10^3/uL (5.0-10.0)
[2023-09-27 01:26] LABS: BASOPHILS PERCENT AUTO 4.2 % (0.0-1.0); LYMPHOCYTES PERCENT AUTO 32.9 % (20.5-50.1); NEUTROPHILS PERCENT AUTO 54.9 % (42.2-75.2)
[2023-09-27] MEDS ORDERED: Sodium Chloride 0.9% 1,000 ML IV ONE (01:40)
[2023-09-27 01:45] LABS: APPEARANCE,URINE CLEAR (CLEAR); BILIRUBIN,URINE NEGATIVE (NEGATIVE); COLOR,URINE YELLOW (YELLOW); GLUCOSE,URINE NEGATIVE (NEGATIVE); KETONES,URINE NEGATIVE (NEGATIVE); LEUKOCYTE ESTERASE,URINE MODERATE (NEGATIVE); NITRITE,URINE NEGATIVE (NEGATIVE); OCCULT BLOOD,URINE NEGATIVE (NEGATIVE); PH,URINE 5.5 (5.0-9.0); PROTEIN,URINE NEGATIVE (NEGATIVE); UROBILINOGEN,URINE 0.2 mg/dL (0.2-1.0)
[2023-09-27 01:47] LABS: AMPHETAMINES,URINE NEGATIVE (NEGATIVE); BARBITURATES,URINE NEGATIVE (NEGATIVE); BENZODIAZEPINE,URINE POSITIVE (NEGATIVE); MDMA (ECSTASY), URINE NEGATIVE (NEGATIVE); METHADONE,URINE NEGATIVE (NEGATIVE); METHAMPHETAMINES,URINE NEGATIVE (NEGATIVE); OPIATES,URINE NEGATIVE (NEGATIVE); OXYCODONE,URINE NEGATIVE (NEGATIVE); PHENCYCLIDINE,URINE NEGATIVE (NEGATIVE); TCA,URINE NEGATIVE (NEGATIVE)
[2023-09-27 01:48] LABS: LACTIC ACID 1.3 mmol/L (0.4-2.0)
[2023-09-27 01:51] LABS: HCG QUALITATIVE,SERUM NEGATIVE (NEGATIVE)
[2023-09-27 01:55] LABS: CORONAVIRUS COVID-19 NAA NEGATIVE (NEGATIVE); INFLUENZA A NAA NEGATIVE (NEGATIVE); INFLUENZA B NAA NEGATIVE (NEGATIVE); RESPIRATORY SYNCYTIAL VIR NAA NEGATIVE (NEGATIVE)
[2023-09-27 01:55] LABS: ALANINE AMINOTRANSFERASE,ALT 81 U/L (14-59); ALKALINE PHOSPHATASE 182 U/L (46-116); ANION GAP 13.5 mEq/L (7-13); ASPARTATE AMNIOTRANSFERASE,AST 52 U/L (15-37); BILIRUBIN TOTAL 0.3 mg/dL (0.2-1.0); BLOOD UREA NITROGEN,BUN 12 mg/dL (7-18); BUN/CREATININE RATIO 14.6 (No establ ref range); CALCIUM 9.1 mg/dL (8.5-10.1); CARBON DIOXIDE,CO2 29 mmol/L (21-32); CHLORIDE,CL 99 mmol/L (98-107); CREATININE 0.82 mg/dL (0.55-1.02); EST CRCL DRUG DOSING (CG) 68.51 mL/min; GLUCOSE RANDOM 140 mg/dL (70-99); LIPASE 41 U/L (16-77); POTASSIUM,K 3.5 mmol/L (3.5-5.1); SODIUM,NA 138 mmol/L (136-145); TSH ULTRASENSITIVE 5.73 uIU/mL (0.36-3.74)
[2023-09-27 01:57] LABS: C-REACTIVE PROTEIN < 0.50 ng/dL (<=0.50); ESTIMATED GFR 85 mL/min (>=60); ETHANOL BLOOD MEDICAL < 3 mg/dL (0)
[2023-09-27 02:01] LABS: BACTERIA,URINE MODERATE /HPF (0-FEW/HPF); EPITHELIAL CELLS,URINE MODERATE /HPF (NOT SEEN); MUCUS,URINE FEW /LPF (NOT SEEN); WBC,URINE 40-50 /HPF (0-5/HPF)
[2023-09-27 02:31] LABS: BAND PERCENT MAN 1 %; EOSINOPHILS PERCENT MAN 4 % (1-3); LYMPHOCYTES PERCENT MAN 26 % (20-50); MONOCYTES PERCENT MAN 6 % (2-8); SEG NEUTROPHILS PERCENT MAN 60 % (42-75)
== END 2023-09-27 02:32 | disposition home or self-care (01) ==
LOC: DL.ED 23:52
DX: N30.00 Acute cystitis without hematuria (principal); J06.9 Acute upper respiratory infection, unspecified; J02.9 Acute pharyngitis, unspecified; B34.9 Viral infection, unspecified; R94.5 Abnormal results of liver function studies; Z85.040 Personal history of malignant carcinoid tumor of rectum; E78.00 Pure hypercholesterolemia, unspecified; Z86.16 Personal history of COVID-19; Z90.49 Acquired absence of other specified parts of digestive tract; Z90.710 Acquired absence of both cervix and uterus; Z79.899 Other long term (current) drug therapy; Z79.82 Long term (current) use of aspirin; Z91.040 Latex allergy status; Z88.1 Allergy status to other antibiotic agents; Z88.8 Allergy status to other drugs, medicaments and biological substances; Z20.822 Contact with and (suspected) exposure to COVID-19
CPT/HCPCS: 0241U; 36415; 80053; 80305-QW; 80307; 81001; 83605; 83690; 83735; 84145; 84443; 84703; 85025; 86140; 87081; 87086; 87088; 87186; 87430; 96360; 99284; 99284-25; J7030

== ENCOUNTER 2024-02-27 06:39 | Emergency (ER) | payer BC ==
[2024-02-27 06:59] VITALS: BP 135/89; PULSE 111
== END 2024-02-27 07:12 | disposition home or self-care (01) ==
LOC: DL.ED 06:39
DX: B02.9 Zoster without complications (principal); E78.00 Pure hypercholesterolemia, unspecified; Z88.8 Allergy status to other drugs, medicaments and biological substances; Z88.1 Allergy status to other antibiotic agents; Z79.82 Long term (current) use of aspirin; Z79.899 Other long term (current) drug therapy; Z86.16 Personal history of COVID-19; Z90.710 Acquired absence of both cervix and uterus; Z90.49 Acquired absence of other specified parts of digestive tract
CPT/HCPCS: 99282; 99283

== ENCOUNTER 2024-06-25 05:52 | Emergency (ER) | payer BC ==
[2024-06-25 06:09] VITALS: BP 133/88; PULSE 95
[2024-06-25] MEDS: Ondansetron 4 MG/2 ML SDV IVPUSH ONE (06:33)
[2024-06-25] MEDS: Sodium Chloride 0.9% 1,000 ML IV ONE (06:33)
[2024-06-25] MEDS: Famotidine 20 MG/2 ML SDV IVPUSH ONE (06:34)
[2024-06-25 06:35] LABS: HEMATOCRIT 44.6 % (37.0-47.0); HEMOGLOBIN 14.2 g/dL (12.0-16.0); MEAN CORPUSCULAR HEMOGLOBIN 29.6 pg (27.0-34.0); MEAN CORPUSCULAR HGB CONC 31.8 g/dL (33.0-35.0); MEAN CORPUSCULAR VOLUME 93.1 fL (80-100); PLATELET COUNT,PLT 589 10^3/uL (150-450); RED BLOOD CELL COUNT 4.79 10^6/uL (4.2-5.4)
[2024-06-25 06:41] LABS: BASOPHILS PERCENT AUTO 6.3 % (0.0-1.0); EOSINOPHILS PERCENT AUTO 3.2 % (1.0-3.0); LYMPHOCYTES PERCENT AUTO 13.8 % (20.5-50.1); MONOCYTES PERCENT AUTO 2.8 % (2-8); NEUTROPHILS PERCENT AUTO 73.9 % (42.2-75.2)
[2024-06-25 06:50] LABS: APPEARANCE,URINE SLIGHTLY CLOUDY (CLEAR); BILIRUBIN,URINE NEGATIVE (NEGATIVE); COLOR,URINE DARK YELLOW (YELLOW); GLUCOSE,URINE NEGATIVE (NEGATIVE); KETONES,URINE NEGATIVE (NEGATIVE); LEUKOCYTE ESTERASE,URINE SMALL (NEGATIVE); NITRITE,URINE NEGATIVE (NEGATIVE); OCCULT BLOOD,URINE NEGATIVE (NEGATIVE); PH,URINE 5.5 (5.0-9.0); PROTEIN,URINE TRACE (NEGATIVE)
[2024-06-25 07:00] LABS: ALANINE AMINOTRANSFERASE,ALT 32 U/L (14-59); ALBUMIN 3.9 g/dL (3.4-5.0); ALKALINE PHOSPHATASE 140 U/L (46-116); ANION GAP 15.8 mEq/L (7-13); ASPARTATE AMNIOTRANSFERASE,AST 23 U/L (15-37); BILIRUBIN TOTAL 0.3 mg/dL (0.2-1.0); BLOOD UREA NITROGEN,BUN 17 mg/dL (7-18); BUN/CREATININE RATIO 19.1 (No establ ref range); CALCIUM 9.1 mg/dL (8.5-10.1); CARBON DIOXIDE,CO2 26 mmol/L (21-32); CHLORIDE,CL 102 mmol/L (98-107); CREATININE 0.89 mg/dL (0.55-1.02); EST CRCL DRUG DOSING (CG) 63.12 mL/min; GLUCOSE RANDOM 110 mg/dL (70-99); LIPASE 63 U/L (16-77); MAGNESIUM 1.9 mg/dL (1.8-2.4); POTASSIUM,K 3.8 mmol/L (3.5-5.1); PROTEIN TOTAL,TP 7.7 g/dL (6.4-8.2); SODIUM,NA 140 mmol/L (136-145)
[2024-06-25 07:02] LABS: ESTIMATED GFR 77 mL/min (>=60)
[2024-06-25 07:14] LABS: LACTIC ACID 1.5 mmol/L (0.4-2.0)
[2024-06-25 07:26] LABS: AMORPHOUS SEDIMENT,URINE FEW /HPF (NOT SEEN); BACTERIA,URINE MODERATE /HPF (0-FEW/HPF); CALCIUM OXALATE CRYSTALS,URINE MODERATE /HPF (NOT SEEN); EPITHELIAL CELLS,URINE MODERATE /HPF (NOT SEEN); MUCUS,URINE MODERATE /LPF (NOT SEEN); WBC,URINE 40-50 /HPF (0-5/HPF)
[2024-06-25 08:08] LABS: BAND PERCENT MAN 3 %; EOSINOPHILS PERCENT MAN 3 % (1-3); LYMPHOCYTES PERCENT MAN 14 % (20-50); MONOCYTES PERCENT MAN 5 % (2-8); SEG NEUTROPHILS PERCENT MAN 74 % (42-75)
== END 2024-06-25 09:31 | disposition home or self-care (01) ==
LOC: DL.ED 05:52
DX: R42 Dizziness and giddiness (principal); E86.0 Dehydration; N30.00 Acute cystitis without hematuria; E78.00 Pure hypercholesterolemia, unspecified; M19.90 Unspecified osteoarthritis, unspecified site; Z79.899 Other long term (current) drug therapy; Z79.82 Long term (current) use of aspirin; Z88.1 Allergy status to other antibiotic agents; Z88.8 Allergy status to other drugs, medicaments and biological substances; Z91.048 Other nonmedicinal substance allergy status
CPT/HCPCS: 36415; 70450; 80053; 81001; 83605; 83690; 83735; 84484; 85025; 87086; 93005; 93010; 96361; 96374; 96375; 99284; 99284-25; J2405; J3490; J7030

== ENCOUNTER 2024-07-26 21:41 | Emergency (ER) | payer BC ==
[2024-07-26 22:29] VITALS: BP 138/78; PULSE 96
== END 2024-07-26 23:11 | disposition home or self-care (01) ==
LOC: DL.ED 21:41
DX: R43.2 Parageusia (principal); E86.9 Volume depletion, unspecified; Z90.49 Acquired absence of other specified parts of digestive tract; Z90.710 Acquired absence of both cervix and uterus; Z79.82 Long term (current) use of aspirin; Z79.899 Other long term (current) drug therapy; Z88.9 Allergy status to unspecified drugs, medicaments and biological substances; Z88.8 Allergy status to other drugs, medicaments and biological substances; Z88.1 Allergy status to other antibiotic agents; Z91.040 Latex allergy status
CPT/HCPCS: 87070; 99283

== ENCOUNTER 2024-08-24 17:55 | Emergency (ER) | payer BC ==
[2024-08-24] MEDS: Sodium Chloride 0.9% 1,000 ML IV ONE (18:23)
[2024-08-24] MEDS: Ondansetron 4 MG/2 ML SDV IVPUSH ONE (18:23)
[2024-08-24 18:56] LABS: A/G RATIO 1.3; ALBUMIN 4.2 g/dL (3.4-5.0); ANION GAP 9.9 mEq/L (7-13); BILIRUBIN TOTAL 0.4 mg/dL (0.2-1.0); CALCIUM 8.9 mg/dL (8.5-10.1); CREATININE 0.96 mg/dL (0.55-1.02); EST CRCL DRUG DOSING (CG) 57.85 mL/min; MAGNESIUM 2.1 mg/dL (1.8-2.4); POTASSIUM,K 3.9 mmol/L (3.5-5.1); PROTEIN TOTAL,TP 7.5 g/dL (6.4-8.2)
[2024-08-24 19:25] VITALS: BP 105/67; PULSE 68
== END 2024-08-24 19:22 | disposition home or self-care (01) ==
LOC: DL.ED 17:55
DX: R19.7 Diarrhea, unspecified (principal); Z90.49 Acquired absence of other specified parts of digestive tract; Z90.710 Acquired absence of both cervix and uterus; Z79.899 Other long term (current) drug therapy; Z79.82 Long term (current) use of aspirin; Z88.1 Allergy status to other antibiotic agents; Z88.8 Allergy status to other drugs, medicaments and biological substances; Z91.048 Other nonmedicinal substance allergy status
CPT/HCPCS: 36415; 80053; 83735; 96361; 96374; 99283; 99284-25; J2405; J7030

== ENCOUNTER 2024-09-13 19:13 | Emergency (ER) | payer BC ==
[2024-09-13] MEDS ORDERED: Sodium Chloride 0.9% 10 ML Syringe FLUSH PRN (19:28)
[2024-09-13 19:45] LABS: BASOPHILS PERCENT AUTO 0.6 % (0.0-1.0); EOSINOPHILS PERCENT AUTO 2.9 % (1.0-3.0); HEMATOCRIT 41.2 % (37.0-47.0); HEMOGLOBIN 13.5 g/dL (12.0-16.0); MEAN CORPUSCULAR HEMOGLOBIN 31.8 pg (27.0-34.0); MEAN CORPUSCULAR HGB CONC 32.8 g/dL (33.0-35.0); MEAN CORPUSCULAR VOLUME 96.9 fL (80-100); NEUTROPHILS PERCENT AUTO 61.5 % (42.2-75.2); PLATELET COUNT,PLT 174 10^3/uL (150-450); RED BLOOD CELL COUNT 4.25 10^6/uL (4.2-5.4); WHITE BLOOD CELL COUNT,WBC 4.8 10^3/uL (5.0-10.0)
[2024-09-13 20:05] LABS: A/G RATIO 1.3; ALANINE AMINOTRANSFERASE,ALT 43 U/L (14-59); ALBUMIN 4.6 g/dL (3.4-5.0); ALKALINE PHOSPHATASE 172 U/L (46-116); ANION GAP 12.4 mEq/L (7-13); ASPARTATE AMNIOTRANSFERASE,AST 37 U/L (15-37); BILIRUBIN TOTAL 0.4 mg/dL (0.2-1.0); BLOOD UREA NITROGEN,BUN 21 mg/dL (7-18); BUN/CREATININE RATIO 19.4 (No establ ref range); CARBON DIOXIDE,CO2 29 mmol/L (21-32); CHLORIDE,CL 103 mmol/L (98-107); CREATININE 1.08 mg/dL (0.55-1.02); ESTIMATED GFR 61 mL/min (>=60); GLUCOSE RANDOM 115 mg/dL (70-99); MAGNESIUM 2.1 mg/dL (1.8-2.4); POTASSIUM,K 4.4 mmol/L (3.5-5.1); PROTEIN TOTAL,TP 8.1 g/dL (6.4-8.2); SODIUM,NA 140 mmol/L (136-145)
[2024-09-13] MEDS: Lactated Ringers 1,000 ML IV ONE (20:12)
[2024-09-13] MEDS: Octreotide 100 MCG/ML SDV SUBCUT ONE ×2 (21:45)
[2024-09-13 22:03] VITALS: BP 120/73; PULSE 64
== END 2024-09-13 22:02 | disposition home or self-care (01) ==
LOC: DL.ED 19:13
DX: K52.1 Toxic gastroenteritis and colitis (principal); T45.1X5A Adverse effect of antineoplastic and immunosuppressive drugs, initial encounter; E86.0 Dehydration; M19.90 Unspecified osteoarthritis, unspecified site; Z90.49 Acquired absence of other specified parts of digestive tract; Z90.710 Acquired absence of both cervix and uterus; Z88.1 Allergy status to other antibiotic agents; Z88.8 Allergy status to other drugs, medicaments and biological substances; Z91.09 Other allergy status, other than to drugs and biological substances; Z79.82 Long term (current) use of aspirin; Z79.899 Other long term (current) drug therapy
CPT/HCPCS: 36415; 80053; 83735; 85025; 96360; 96372; 99284; J2354; J7120

== ENCOUNTER 2024-09-15 15:25 | Emergency (ER) | payer BC ==
[2024-09-15] MEDS: Ondansetron 4 MG/2 ML SDV IVPUSH ONE (16:34)
[2024-09-15] MEDS: Sodium Chloride 0.9% 1,000 ML IV ONE (16:34)
[2024-09-15 16:36] LABS: BASOPHILS PERCENT AUTO 0.4 % (0.0-1.0); HEMATOCRIT 42.5 % (37.0-47.0); HEMOGLOBIN 13.8 g/dL (12.0-16.0); LYMPHOCYTES PERCENT AUTO 19.7 % (20.5-50.1); MEAN CORPUSCULAR HEMOGLOBIN 31.9 pg (27.0-34.0); MEAN CORPUSCULAR HGB CONC 32.5 g/dL (33.0-35.0); MEAN CORPUSCULAR VOLUME 98.4 fL (80-100); MONOCYTES PERCENT AUTO 8.3 % (2-8); NEUTROPHILS PERCENT AUTO 69.6 % (42.2-75.2); PLATELET COUNT,PLT 154 10^3/uL (150-450); RED BLOOD CELL COUNT 4.32 10^6/uL (4.2-5.4); WHITE BLOOD CELL COUNT,WBC 4.6 10^3/uL (5.0-10.0)
[2024-09-15 17:02] LABS: A/G RATIO 1.2; ALBUMIN 4.2 g/dL (3.4-5.0); ANION GAP 11.8 mEq/L (7-13); BILIRUBIN TOTAL 0.4 mg/dL (0.2-1.0); BUN/CREATININE RATIO 16.7 (No establ ref range); CALCIUM 8.4 mg/dL (8.5-10.1); CREATININE 1.02 mg/dL (0.55-1.02); EST CRCL DRUG DOSING (CG) 54.45 mL/min; MAGNESIUM 2.1 mg/dL (1.8-2.4); POTASSIUM,K 3.8 mmol/L (3.5-5.1); PROTEIN TOTAL,TP 7.7 g/dL (6.4-8.2)
[2024-09-15 17:39] LABS: APPEARANCE,URINE SLIGHTLY CLOUDY (CLEAR); BILIRUBIN,URINE NEGATIVE (NEGATIVE); COLOR,URINE YELLOW (YELLOW); GLUCOSE,URINE NEGATIVE (NEGATIVE); KETONES,URINE NEGATIVE (NEGATIVE); LEUKOCYTE ESTERASE,URINE TRACE (NEGATIVE); NITRITE,URINE NEGATIVE (NEGATIVE); OCCULT BLOOD,URINE NEGATIVE (NEGATIVE); PH,URINE 5.5 (5.0-9.0); PROTEIN,URINE 30 (NEGATIVE); UROBILINOGEN,URINE 0.2 mg/dL (0.2-1.0)
[2024-09-15 17:51] LABS: BACTERIA,URINE MODERATE /HPF (0-FEW/HPF); EPITHELIAL CELLS,URINE FEW /HPF (NOT SEEN); RBC,URINE 0-5 /HPF (0-5)
[2024-09-15 17:52] LABS: AMORPHOUS SEDIMENT,URINE FEW /HPF (NOT SEEN); MUCUS,URINE FEW /LPF (NOT SEEN)
[2024-09-15] MEDS ORDERED: Octreotide 100 MCG/ML SDV IVPUSH ONE (19:33)
[2024-09-15 20:05] VITALS: BP 125/78; PULSE 87
== END 2024-09-15 20:16 ==
LOC: DL.ED 15:25
DX: R19.7 Diarrhea, unspecified (principal); K62.89 Other specified diseases of anus and rectum; E86.0 Dehydration; Z91.048 Other nonmedicinal substance allergy status; Z88.1 Allergy status to other antibiotic agents; Z88.8 Allergy status to other drugs, medicaments and biological substances
CPT/HCPCS: 36415; 80053; 81001; 83690; 83735; 85025; 87045; 87086; 87428; 87493; 87899; 96361; 96374; 99284; J2405; J7030; 87046

== ENCOUNTER 2025-04-18 17:06 | Emergency (ER) | payer BC ==
[2025-04-18 18:17] VITALS: BP 114/83; PULSE 67
== END 2025-04-18 18:16 | disposition home or self-care (01) ==
LOC: DL.ED 17:06
DX: H93.8X3 Other specified disorders of ear, bilateral (principal); R07.0 Pain in throat; Z90.49 Acquired absence of other specified parts of digestive tract; Z90.710 Acquired absence of both cervix and uterus; Z88.8 Allergy status to other drugs, medicaments and biological substances; Z91.048 Other nonmedicinal substance allergy status; Z79.82 Long term (current) use of aspirin; Z79.899 Other long term (current) drug therapy
CPT/HCPCS: 87081; 87430; 99283

== ENCOUNTER 2025-04-26 11:10 | Emergency (ER) | payer BC ==
[2025-04-26] MEDS: Take Home: predniSONE 20 MG, 4 Tab Pack PO ONE (12:43)
[2025-04-26] MEDS: Take Home: Amoxicillin/Clavulanate K 875-125 MG Tab, 6 Tab Pack PO ONE (12:43)
[2025-04-26 15:49] VITALS: BP 121/72; PULSE 95
== END 2025-04-26 12:50 | disposition home or self-care (01) ==
LOC: DL.ED 11:10
DX: J01.90 Acute sinusitis, unspecified (principal); M19.90 Unspecified osteoarthritis, unspecified site; Z88.8 Allergy status to other drugs, medicaments and biological substances; Z79.82 Long term (current) use of aspirin; Z79.899 Other long term (current) drug therapy; Z90.710 Acquired absence of both cervix and uterus; Z90.49 Acquired absence of other specified parts of digestive tract
CPT/HCPCS: 99283; A9270